=== PATIENT | male | born 1940 | race Caucasian/White ===

== ENCOUNTER → 2018-05-14 12:49 | Outpatient (CLI) | payer MEDICARE, OTHER, SELFPAY ==
--- NOTE | 2018-05-14 | DI.MG.S_ITS ---
MALE BILATERAL DIGITAL DIAGNOSTIC MAMMOGRAM 3D/2D: 05/14/2018 CLINICAL: Left breast mass. No prior exams were available for comparison. There is a benign area of fibroglandular tissue in the left breast central to the nipple anterior depth. This correlates as palpated, to the area of reported pain, and to area of tenderness. No other significant masses, calcifications, or other findings are seen in either breast. IMPRESSION: Mammographic appearance is consistent with left breast gynecomastia. There is no mammographic evidence of malignancy. Clinical follow up for symptoms is recommended. Findings were conveyed to the patient. This exam was interpreted at Station ID: [id number]. NOTE: For mammograms, a report in lay terms will be sent to the patient. Approximately 15% of breast malignancies will not be visualized mammographically. In the management of a palpable breast mass, a negative mammogram must not discourage biopsy of a clinically suspicious lesion. Electronically Signed By: Rama jeffers/:05/14/2018 15:09:28 letter sent: Clinical Evaluation ACR BI-RADS Category 2: Benign Finding(s) [id number]
--- NOTE | 2018-05-14 | DI.US.S_ITS ---
LIMITED ULTRASOUND OF LEFT BREAST: 05/14/2018 CLINICAL: Left breast pain / lump. Comparison is made to exam [facility] Ultrasound of the left breast retroareolar was performed. No abnormalities were seen sonographically in the left breast to correspond to patients lump or area of pain. IMPRESSION: NEGATIVE There is no sonographic evidence of malignancy. Findings were conveyed to the patient. Clinical follow up is recommended. Please see corresponding mammogram report. This exam was interpreted at Station ID: [id number]. Electronically Signed By: Rama jeffers/:05/14/2018 15:06:26 Ultrasound BI-RADS: 1 Negative
== END ==
PROVIDERS: PCP Family Medicine; Visit Provider Family Medicine
DX: N63.20 Unspecified lump in the left breast, unspecified quadrant (principal); N62 Hypertrophy of breast; N64.4 Mastodynia
CPT/HCPCS: 76642; 77066; G0279

== ENCOUNTER → 2019-10-24 12:17 | Outpatient (CLI) | payer MEDICARE, OTHER, SELFPAY ==
--- NOTE | 2019-10-24 12:19 | DI.MRI.S_ITS ---
PROCEDURE: MR LUMBAR SPINE WO/W CON INDICATIONS: SPINAL STENOSIS LUMBAR REGION WITH NEUROGENIC CLA TECHNIQUE: Noncontrast sagittal T1 spin echo and T2 fast spin echo, sagittal STIR, axial T1 and T2 fast spin echo through the lumbar spine. In cases with scoliosis, additional coronal T2 fast spin echo may be performed. After the administration of contrast, sagittal and axial T1 spin echo with fat saturation through the lumbar spine. COMPARISON: None. FINDINGS: Image quality: Excellent. Alignment and curvature: There is mild grade anterolisthesis seen level. No associated pars defects are seen mild retrolisthesis is seen and L5-S1. Marrow: Marrow is of normal overall signal. No acute vertebral body compression fractures. No suspicious marrow enhancement. Spinal cord: Conus medullaris terminates at the L1 level. Visualized spinal cord demonstrates normal signal, without suspicious enhancement. Paraspinous soft tissues: No paravertebral masses or abnormal enhancement. T12-L1: No significant abnormality is seen. There is a Schmorl's seen the inferior endplate of T12 anteriorly. L1-L2: The disc height and disk signal are well-preserved. Mild generalized disc bulge is seen. Mild facet joint hypertrophy is seen. Mild bilateral neural foraminal narrowing is seen. No significant central canal narrowing is seen. L2-L3: The disc height is well-preserved. Loss of disc signal is seen at this level. Moderate disc bulge is seen, with a central disc protrusion. There is at least moderate facet hypertrophy seen. Associated hypertrophy of the ligamentum flavum can be seen. At least moderate bilateral neural foraminal narrowing is seen, left worse than right. Moderate to severe central canal narrowing is seen, as on series 6, image 20. L3-L4: The disc height is well-preserved. Loss of disc signal is seen at this level. Moderate disc bulge is seen, which is eccentric to the right. Moderate prominent facet hypertrophy is seen. Associated hypertrophy of the ligamentum flavum can be seen. There is at least moderate bilateral neural foraminal narrowing seen, right worse than left. Moderate to severe central canal narrowing is seen, as on series 6, image 26. L4-L5: Moderate loss of disc height is seen. Loss of disc signal is seen. At least moderate disc bulge is seen at this level. A mild central disc extrusion is seen at this level, as on series 2, image 11. There is an associated annular fissure seen. There is moderate right-sided and moderate to prominent left-sided facet hypertrophy seen. There is at least moderate right-sided and moderate to severe left-sided neural foraminal narrowing seen. There is a degree of compression seen upon the exiting nerve roots. At least moderate central canal narrowing is seen, as on series 6, image 31. L5-S1: At least moderate loss of disc height and disc signal can be seen. Moderate disc bulge is seen, with a mild central disc protrusion. There is a focal annular fissure seen posteriorly. Mild to moderate facet hypertrophy is seen. There is moderate to severe bilateral neural foraminal narrowing seen, left worse than right. There is a degree of compression seen upon the exiting nerve roots. Moderate central canal narrowing is seen. IMPRESSION: Multiple levels of lumbar spine degenerative change are seen, which are most prominent inferiorly. No abnormal enhancement is seen. Dictated by: Donnell Cullen M.D. on 10/24/2019 at 14:26 Approved by: Donnell Cullen M.D. on 10/24/2019 at 14:31
--- NOTE | 2019-10-24 12:56 | DI.RAD.S_ITS ---
PROCEDURE: XR KNEE LT 3V INDICATIONS: EVAL FOR DEGREE OF OA ALSO WITH CURRENT H/O RECURRENT PROSTA TECHNIQUE: 3 views of the knee were acquired. COMPARISON: None. FINDINGS: Bones: No fractures or dislocations. No suspicious bony lesions. Moderate medial and patellofemoral compartment osteoarthritis. Mild lateral compartment osteoarthritis. Soft tissues: No joint effusion. No suspicious soft tissue calcifications. IMPRESSION: Moderate medial and patellofemoral compartment as well as mild lateral compartment left knee osteoarthritis. Dictated by: Lucille Celis MD, PhD on 10/24/2019 at 15:23 Approved by: Lucille Celis MD, PhD on 10/24/2019 at 15:24
--- NOTE | 2019-10-24 12:56 | DI.RAD.S_ITS ---
PROCEDURE: XR KNEE RT 3V INDICATIONS: EVAL FOR DEGREE OF OA ALSO WITH CURRENT H/O RECURRENT PROSTA TECHNIQUE: 3 views of the knee were acquired. COMPARISON: None. FINDINGS: Bones: Postsurgical changes compatible prior anterior cruciate ligament. Noted. No fractures or dislocations. No suspicious bony lesions. Moderate medial and patellofemoral compartment osteoarthritis. Mild lateral compartment osteoarthritis. Soft tissues: Small suprapatellar joint effusion. No suspicious soft tissue calcifications. IMPRESSION: 1. Status post ACL repair. 2. Moderate medial and patellofemoral compartment as well as mild lateral compartment right knee osteoarthritis. 3. Small nonspecific joint effusion. Dictated by: Lucille Celis MD, PhD on 10/24/2019 at 15:24 Approved by: Lucille Celis MD, PhD on 10/24/2019 at 15:26
== END ==
PROVIDERS: PCP Family Medicine; Referring Provider Family Medicine; Visit Provider Family Medicine
DX: M48.062 Spinal stenosis, lumbar region with neurogenic claudication (principal); M47.816 Spondylosis without myelopathy or radiculopathy, lumbar region; M47.817 Spondylosis without myelopathy or radiculopathy, lumbosacral region; C61 Malignant neoplasm of prostate; M25.561 Pain in right knee; M25.562 Pain in left knee; M17.0 Bilateral primary osteoarthritis of knee; M25.461 Effusion, right knee
CPT/HCPCS: 72158; 73562

== ENCOUNTER → 2020-12-24 11:58 | Outpatient (CLI) | payer MEDICARE, OTHER, SELFPAY ==
[2020-12-24 20:44] LABS: COVID19 - ORCAS (NP or Nasal) Negative (Negative)
== END ==
PROVIDERS: PCP Family Medicine; Visit Provider Family Medicine
DX: Z20.822 Contact with and (suspected) exposure to COVID-19 (principal); N39.0 Urinary tract infection, site not specified
CPT/HCPCS: C9803; U0003

== ENCOUNTER → 2021-10-06 16:41 | Outpatient (CLI) | payer MEDICARE, OTHER, SELFPAY ==
--- NOTE | 2021-10-06 16:45 | DI.MRI.S_ITS ---
PROCEDURE: MR LUMBAR SPINE WO CON INDICATIONS: Spinal stenosis, foraminal stenosis, neurogenic claudication TECHNIQUE: Noncontrast sagittal T1 spin echo and T2 fast echo, sagittal STIR, and T2 fast spin echo through the lumbar spine. In cases with scoliosis, additional coronal T2 fast spin echo may be performed. COMPARISON: None. FINDINGS: Image quality: Excellent. Alignment and Curvature: There is normal bony alignment. Bone Marrow: Multilevel degenerative endplate changes noted particularly at L4-5. Spinal Cord: Conus medullaris terminates at the L1 level. Visualized cord demonstrates normal signal and size. Paraspinous Soft Tissues: No paravertebral masses. T12-L1: Normal appearance. L1-L2: Mild disc space narrowing and circumferential disc bulge present without central or foraminal stenosis L2-L3: Circumferential disc bulge and hypertrophic facet joints combined with ligamentum flavum laxity to result in moderate to severe central stenosis. Mild bilateral foraminal stenosis L3-L4: Disc space narrowing with circumferential disc bulge and hypertrophic facet joints results in moderate central stenosis. No foraminal stenosis L4-L5: Disc space narrowing with circumferential disc bulge and hypertrophic facet joints combined result in moderate central stenosis. Moderate bilateral foraminal stenosis present. L5-S1: Disc space narrowing with circumferential disc bulge and hypertrophic facet joints resulting mild central stenosis severe right and left foraminal stenosis IMPRESSION: Para auto text Multilevel degenerative disc disease and arthropathy results in varying degrees of central and foraminal stenosis including at least moderate central stenosis L2-3, L3-4 and L4-5, worse at L2-3, as well as severe bilateral foraminal stenosis at L5-S1 Approved by: Noe Hinds M.D. on 10/06/2021 at 17:09
== END ==
PROVIDERS: PCP Physician Assistant Medical; Referring Provider Family Medicine; Visit Provider Family Medicine
DX: M48.062 Spinal stenosis, lumbar region with neurogenic claudication (principal); M48.07 Spinal stenosis, lumbosacral region; M51.36 Other intervertebral disc degeneration, lumbar region; M51.37 Other intervertebral disc degeneration, lumbosacral region; M47.816 Spondylosis without myelopathy or radiculopathy, lumbar region; M47.817 Spondylosis without myelopathy or radiculopathy, lumbosacral region
CPT/HCPCS: 72148

== ENCOUNTER → 2022-01-18 12:06 | Outpatient (CLI) | payer MEDICARE, OTHER, SELFPAY ==
--- NOTE | 2022-01-18 12:09 | DI.RAD.S_ITS ---
PROCEDURE: XR LUMBAR SPINE MIN 4V INDICATIONS: BACK PAIN TECHNIQUE: 5 views of the lumbar spine were acquired, including bilateral oblique views. COMPARISON: None. FINDINGS: Bones: 5 nonrib-bearing vertebrae are present. There is straightening of normal lumbar lordosis. 5 mm anterolisthesis of L3 on L4 is seen. Degenerative endplate changes and bilateral facet arthrosis throughout lumbar spine is seen most notably at L3-4 through L5-S1 levels. No vertebral body compression fractures. No suspicious bony lesions. Soft tissues: Overlying bowel gas pattern is normal. No suspicious soft tissue calcifications. Oblique images: No pars defects. IMPRESSION: Degenerative disc disease throughout lumbar spine. 5 mm anterolisthesis of L3 on L4. No acute compression fracture. No gross pars defects. Dictated by: Chencho Steiner M.D. on 01/18/2022 at 13:27 Approved by: Chencho Steiner M.D. on 01/18/2022 at 13:29
== END ==
PROVIDERS: PCP Family Medicine; Referring Provider Physical Medicine & Rehabilitation; Visit Provider Physical Medicine & Rehabilitation
DX: M51.16 Intervertebral disc disorders with radiculopathy, lumbar region (principal); M43.16 Spondylolisthesis, lumbar region; M48.062 Spinal stenosis, lumbar region with neurogenic claudication; M16.0 Bilateral primary osteoarthritis of hip; Z98.890 Other specified postprocedural states
CPT/HCPCS: 72110; 99214

== ENCOUNTER 2022-02-21 10:51 | Outpatient (CLI) | payer MEDICARE, OTHER, SELFPAY ==
[2022-02-21] VITALS (9 sets, daily range): BP systolic 112–161; BP diastolic 67–81; PULSE 68–88; RESP 11–24; TEMP 36.3; O2SAT 94–97
--- NOTE | 2022-02-21 10:56 | DI.RAD.S_ITS ---
PROCEDURE: PAIN L INTERLAMINAR/CAUDAL INJ INDICATIONS: SPONDYLOSIS COMPARISON: [facility], [place], XR LUMBAR SPINE MIN 4V, 01/18/2022, 12:23. FINDINGS: Fluoroscopic spot filming was performed to verify placement of a spinal needle at the L3-L4 level, as labeled on the films. Appropriate location of the needle tip was confirmed by injection of iodinated contrast. IMPRESSION: Intraprocedural examination within normal limits. Dictated by: Donnell Cullen M.D. on 02/21/2022 at 14:10 Approved by: Donnell Cullen M.D. on 02/21/2022 at 14:10
[2022-02-21] MEDS: MIDAZOLAM 2 MG/2 ML VIAL 4 MG IV (12:36)
[2022-02-21] MEDS: BETAMETHASONE 30 MG/5 ML MDV 6 MG INJ (12:40)
[2022-02-21] MEDS: IOPAMIDOL 15 ML VIAL 3 ML INJ (12:41)
[2022-02-21] MEDS: BUPIVACAINE 0.25% (PF) VIAL 2 ML INJ (12:41)
[2022-02-21] MEDS: DEXAMETHASONE 10 MG/ML VIAL 20 MG INJ (12:41)
--- NOTE | 2022-02-21 12:48 | P.PCN_ITS ---
Date/Time/Diagnoses Date of procedure: 02/21/22 Time of procedure: 12:48 Pre-procedure diagnosis: 1. HNP WITH RADICULAR FEATURES, 2. MULTILEVEL CENTRAL STENOSIS, Post-procedure diagnosis: same Procedure Notes Procedure: 1. FLUOROSCOPICALLY GUIDED CONTRAST CONTROLLED INTERLAMINAR EPIDURAL STEROID INJECTION - L3/4 Indications: Yunior is referred by Dr. Delgado for treatment of Bilateral Foraminal Stenosis L>R LE symptoms. Physician: Jose Castro Total Fluoroscopy time (seconds): 6 Total sedation minutes: 9 Complications: none Procedure in detail & Post-procedure care: FINDINGS Multilevel Central Spinal Stenosis with Nerve Root Compression DESCRIPTION OF PROCEDURE Fluoroscopically guided, contrast-controlled L3/4 translaminar epidural steroid injection. Following review of allergy and review of potential side effects and complications, including, but not necessarily limited to, infection, allergic reaction, local tissue breakdown, temporary as well as permanent nerve injury, paralysis, stroke and possible , the patient indicated that the patient understood and agreed to proceed. An informed consent document was signed by the patient, witnessed by a nurse, and placed in the patient's chart. Additionally, other treatment options including modalities, medications, and physical therapy were reviewed with the patient. After review of previous anaesthesic history and IV conscious sedation the patient was deemed safe to proceed with today?s procedure with IV conscious sedation as ASA class II designation. Safety time-out was performed to confirm patient ID, procedure to be performed and site of procedure. IV sedation was accomplished with a combination of 4mg of Versed was administered by the RN after DO order, titrated to patient comfort during the course of the procedure while the patient remained responsive to all verbal commands. In the prone position, following sterile prep and drape of the lumbar region, the L3/4 translaminar space was identified fluoroscopically. The skin was anesthetized via a 25-gauge, 1.5-inch needle with 1% lidocaine solution. At this point, a 22-gauge short bevel spinal needle was atraumatically introduced and advanced under fluoroscopic guidance into the region of the L3/4 translaminar space. Depth was confirmed on lateral view. Radiological data, including multiple fluoroscopic views of the lumbar spine, reveal a spinal needle at the L3/4 translaminar space. Lateral views then show placement of the needle in the epidural space. Subsequent views show contrast material flowing superiorly and inferiorly in the epidural space. No vascular or intrathecal uptake is observed. At this point, using loss of resistance technique with saline and air, the epidural space was entered. This was confirmed following negative aspiration with injection of approximately 1.5 cc of Isovue 200, showing excellent epidural flow without vascular or intrathecal uptake. At this point, 1cc of 1% lidocaine solution combined with 3cc or 20mg of dexamethasone and 6mg of betamethasone was injected without incident. The patient tolerated the procedure well without signs or symptoms of complications prior to transfer to the recovery area continued monitoring without incident. The patient was then transferred to the recovery area where they were observed for an appropriate period of time after the injection. The patient reported a VAS score of 6 prior to the procedure and a post- procedure VAS of 0. POST OP INSTRUCTIONS The patient was provided a Pain Log to continue to record their response to the target-specific procedure prior to follow-up visit with their referring physician. Additionally, specific post-injection care instructions and a contact number to our office were provided if concerns arise regarding possible complications associated with the procedure are suspected.
--- NOTE | 2022-02-21 13:28 | PC.NURSE ---
Patient monitoring post sedation completed. Awaiting his ride who will be delayed. Dr. Castro aware. Medically wang, patient is discharged.
== END 2022-02-21 13:35 | disposition home or self-care (01) ==
LOC: RAD 10:51
PROVIDERS: PCP Family Medicine; Referring Provider Physical Medicine & Rehabilitation; Visit Provider Physical Medicine & Rehabilitation
DX: M48.062 Spinal stenosis, lumbar region with neurogenic claudication (principal); M51.16 Intervertebral disc disorders with radiculopathy, lumbar region
CPT/HCPCS: 62323; J0702; J1100; J2250; J3490

== ENCOUNTER → 2022-09-06 11:57 | Outpatient (CLI) | payer MEDICARE, OTHER, SELFPAY ==
[2022-09-06 19:32] LABS: Alanine Aminotransferase 21 IU/L (<50); Albumin 4.1 g/dL (3.5-5.0); Albumin Globulin Ratio 1.3 (1.0-2.8); Alkaline Phosphatase 111 U/L (38-126); Aspartate Aminotransferase 27 IU/L (17-59); BUN Creatinine Ratio 28.2 (6-22); Bilirubin Total 0.7 mg/dL (0.2-1.3); Blood Urea Nitrogen 20 mg/dL (9-20); Calcium 9.5 mg/dL (8.4-10.2); Carbon Dioxide 26 mmol/L (22-32); Chloride 102 mmol/L (98-107); Estimated Glomerular Filt Rate > 60 mL/min (>60); Globulin 3.1 g/dL (1.7-4.1); Glucose 163 mg/dL (80-110); HEMOLYSIS 19 (0-50); Magnesium 2.1 mg/dL (1.6-2.3); Potassium 3.5 mmol/L (3.4-5.1); Sodium 137 mmol/L (137-145); Total Protein 7.2 g/dL (6.3-8.2)
[2022-09-06 19:39] LABS: Add Manual Diff / Slide Review NO; Basophils Absolute Auto 0 /uL (0-100); Basophils Percent Auto 0.2 % (0-2); Eosinophils Absolute Auto 100 /uL (0-450); Eosinophils Percent Auto 1.5 % (2-4); Hematocrit 39.3 % (41-53); Hemoglobin 13.4 g/dL (13.5-17.5); Lymphocytes Absolute Auto 1000 /uL (1100-4500); Lymphocytes Percent Auto 12.4 % (25-40); Mean Corpuscular Hemoglobin 30.9 PG (26-34); Mean Corpuscular Volume 90.8 fL (80-100); Monocytes Absolute Auto 400 /uL (0-900); Neutrophils Absolute Auto 6300 /uL (1500-7000); Neutrophils Percent Auto 80.9 % (50-75); Platelet Count 192 X10^3/uL (150-400); Red Blood Cell Count 4.33 X10^6/uL (4.5-5.9); Red Cell Distribution Width 14.2 % (11.6-14.8); White Blood Cell Count 7.8 X10^3/uL (4.5-11.0)
[2022-09-07 12:30] LABS: HEMOLYSIS 21 (0-50); Iron 83 ug/dL (49-181)
[2022-09-07 12:40] LABS: Percent Iron Saturation 23 % (20-50); Total Iron Binding Capacity 359 ug/dL (261-462); Transferrin 283 mg/dL (206-381)
[2022-09-07 13:06] LABS: Ferritin 178 ng/mL (18-464)
[2022-09-08 03:09] LABS: Labcorp Hemoglobin (Hb) A1c 5.8 % (4.8-5.6)
== END ==
PROVIDERS: PCP Family Medicine; Visit Provider Physician Assistant
DX: I10 Essential (primary) hypertension (principal); M25.561 Pain in right knee; R42 Dizziness and giddiness; R11.2 Nausea with vomiting, unspecified; G89.29 Other chronic pain; M25.562 Pain in left knee; D64.9 Anemia, unspecified; R73.9 Hyperglycemia, unspecified; Z98.890 Other specified postprocedural states
CPT/HCPCS: 80053; 82728; 83036; 83540; 83550; 83735; 85025

== ENCOUNTER 2023-01-25 10:36 | Outpatient (CLI) | payer MEDICARE, OTHER, SELFPAY ==
[2023-01-25] VITALS (8 sets, daily range): BP systolic 130–150; BP diastolic 66–81; PULSE 57–67; RESP 11–18; TEMP 36; O2SAT 95–98
--- NOTE | 2023-01-25 10:37 | DI.RAD.S_ITS ---
PROCEDURE: PAIN L INTERLAMINAR/CAUDAL INJ INDICATIONS: SPONDYLOSIS COMPARISON: [facility], XA, PAIN L INTERLAMINAR/CAUDAL INJ, 02/21/2022, 13:37. FINDINGS: Fluoroscopic spot filming was performed to verify placement of spinal needles at the L3-L4 interlaminar level(s), as labeled on the films. Appropriate location(s) of the needle tip(s) was confirmed by injection of iodinated contrast. IMPRESSION: Access needle in the L3-L4 interlaminar space for translaminar epidural steroid injection. Dictated by: Lucille Celis MD, PhD on 01/25/2023 at 13:59 Approved by: Lucille Celis MD, PhD on 01/25/2023 at 13:59
[2023-01-25] MEDS: MIDAZOLAM 2 MG/2 ML VIAL IV (11:39)
[2023-01-25] MEDS: BUPIVACAINE 0.25% (PF) VIAL 2 ML INJ (11:48)
[2023-01-25] MEDS: BETAMETHASONE 30 MG/5 ML MDV 6 MG INJ (11:48)
[2023-01-25] MEDS: iopamidoL 15 ML VIAL 3 ML INJ (11:49)
[2023-01-25] MEDS: DEXAMETHASONE 10 MG/ML VIAL INJ (11:49)
--- NOTE | 2023-01-25 11:56 | P.PCN_ITS ---
Date/Time/Diagnoses Date of procedure: 01/25/23 Time of procedure: 11:56 Pre-procedure diagnosis: 1. HNP WITH RADICULAR FEATURES, 2. MULTILEVEL CENTRAL STENOSIS, Post-procedure diagnosis: same Procedure Notes Procedure: 1. FLUOROSCOPICALLY GUIDED CONTRAST CONTROLLED INTERLAMINAR EPIDURAL STEROID INJECTION - L3/4 Indications: Yunior is referred by Dr. Delgado for treatment of Bilateral Foraminal Stenosis L>R LE symptoms. Physician: Jose Castro Total Fluoroscopy time (seconds): 8 Total sedation minutes: 10 Complications: none Procedure in detail & Post-procedure care: FINDINGS Multilevel Central Spinal Stenosis with Nerve Root Compression DESCRIPTION OF PROCEDURE Fluoroscopically guided, contrast-controlled L3/4 translaminar epidural steroid injection. Following review of allergy and review of potential side effects and complications, including, but not necessarily limited to, infection, allergic reaction, local tissue breakdown, temporary as well as permanent nerve injury, paralysis, stroke and possible , the patient indicated that the patient understood and agreed to proceed. An informed consent document was signed by the patient, witnessed by a nurse, and placed in the patient's chart. Additionally, other treatment options including modalities, medications, and physical therapy were reviewed with the patient. After review of previous anaesthesic history and IV conscious sedation the patient was deemed safe to proceed with today?s procedure with IV conscious sedation as ASA class II designation. Safety time-out was performed to confirm p atient ID, procedure to be performed and site of procedure. IV sedation was accomplished with a combination of 2mg of Versed was administered by the RN after DO order, titrated to patient comfort during the course of the procedure while the patient remained responsive to all verbal commands. In the prone position, following sterile prep and drape of the lumbar region, the L3/4 translaminar space was identified fluoroscopically. The skin was anesthetized via a 25-gauge, 1.5-inch needle with 1% lidocaine solution. At this point, a 22-gauge short bevel spinal needle was atraumatically introduced and advanced under fluoroscopic guidance into the region of the L3/4 translaminar space. Depth was confirmed on lateral view. Radiological data, including multiple fluoroscopic views of the lumbar spine, reveal a spinal needle at the L3/4 translaminar space. Lateral views then show placement of the needle in the epidural space. Subsequent views show contrast material flowing superiorly and inferiorly in the epidural space. No vascular or intrathecal uptake is observed. At this point, using loss of resistance technique with saline and air, the epidural space was entered. This was confirmed following negative aspiration with injection of approximately 1.5 cc of Isovue 200, showing excellent epidural flow without vascular or intrathecal uptake. At this point, 1cc of 1% lidocaine solution combined with 2cc or 10mg of dexamethasone and 6mg of betamethasone was injected without incident. The patient tolerated the procedure well without signs or symptoms of complications prior to transfer to the recovery area continued monitoring without incident. The patient was then transferred to the recovery area where they were observed for an appropriate period of time after the injection. The patient reported a VAS score of 6 prior to the procedure and a post- procedure VAS of 0. POST OP INSTRUCTIONS The patient was provided a Pain Log to continue to record their response to the target-specific procedure prior to follow-up visit with their referring physician. Additionally, specific post-injection care instructions and a contact number to our office were provided if concerns arise regarding possible complications associated with the procedure are suspected.
--- NOTE | 2023-01-25 12:12 | PC.NURSE ---
Patient is taking [facility] taxi from the hospital to the [facility]. The taxi is picking him up at 2:[address] entrance[address] Dr. Castro was reminded of this in the procedure room when he verbally ordered 2mg Vers[address] IV[address] Dr[address] Castro stated that he was aware of that and to give the 2mg versed IV. Meds then given per order.
--- NOTE | 2023-01-25 12:18 | PC.NURSE ---
Patient ambulated to the waiting room from the post procedure area. Patient was not dizzy, lightheaded, and he was steady on his feet with no leg weakness bilaterally.
== END 2023-01-25 12:16 | disposition home or self-care (01) ==
LOC: RAD 10:36
PROVIDERS: PCP Family Medicine; Referring Provider Physical Medicine & Rehabilitation; Visit Provider Physical Medicine & Rehabilitation
DX: M51.16 Intervertebral disc disorders with radiculopathy, lumbar region (principal); M48.061 Spinal stenosis, lumbar region without neurogenic claudication
CPT/HCPCS: 62323; 99152; J0702; J1100; J2250; J3490

== ENCOUNTER 2023-09-05 08:40 | Inpatient (IN) | payer MEDICARE, OTHER, SELFPAY ==
[2023-08-27 09:21] VITALS: BMI 32.0
[2023-09-05] VITALS (12 sets, daily range): BP systolic 118–134; BP diastolic 66–78; PULSE 65–75; RESP 12–20; TEMP 35.8–36.9; O2SAT 93–99; BMI 30.4; BMI 30.9
--- NOTE | 2023-09-05 | DI.RAD.S_ITS ---
PROCEDURE: XR LUMBAR SPINE 2-3V INDICATIONS: TLIF 4-5, LAMI L3-4, L2-3 TECHNIQUE: Multiple intraoperative fluoroscopic views of the lumbar spine were acquired. COMPARISON: [facility] ([place]), [place], XR LUMBAR SPINE 2-3V, 08/17/2022, 12:05. FINDINGS: Bones: Multiple fluoroscopic images demonstrate localization and instrumentation at the L4-5 level. IMPRESSION: Fluoroscopic images demonstrating instrumentation at L4-5. Dictated by: Hazel Boyer M.D. on 09/05/2023 at 16:40 Approved by: Hazel Boyer M.D. on 09/05/2023 at 16:41
[2023-09-05] MEDS: LACTATED RINGERS 1,000 ML 42 ML IV ×2 (09:25→12:15)
[2023-09-05] MEDS: ACETAMINOPHEN 325 MG TABLET 975 MG PO (09:35)
--- NOTE | 2023-09-05 10:05 | PM.PREOP ---
Pre-operative Note Interval Note History & Physical reviewed/Exam performed by Physician: Yes Changes to H&P: No
[2023-09-05] MEDS: CEFAZOLIN 2 GM/100 ML PREMIX 100 ML IV ×2 (11:05→18:35)
--- NOTE | 2023-09-05 11:25 | SUR.OPER ---
Prone on spine table, head in foam head support, padded chest and pelvic supports, gel pad at knees, lower legs supported by pillows; nipples, genitalia and toes free of pressure, arms secured on foam padded arm boards at <90 degrees abduction. Tape over blanket at thigh secured to table.
[2023-09-05] MEDS: BUPIVACAINE 0.25% (PF) 60 ML, EPINEPHrine 0.15 MG INJ (11:30)
[2023-09-05] MEDS: BUPIVACAINE LIPOSOME 266 MG/20 ML VIAL INJ (11:31)
--- NOTE | 2023-09-05 14:03 | PM.OP.1 ---
Operative Date/Time/Diagnoses Date of procedure: 09/05/23 Time of procedure: 10:45 Pre-op diagnosis: 1. 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 Epidural lipomatosis Post-op diagnosis: same Procedure & Clinicians Procedure: 1. L4-5 Postero-lateral and posterior interbody fusion 2. L4-5 interbody cage placement. 3. L4-5 decompressive laminectomy with bilateral facetecomies 4. L4-5 Posterior non-segmental instrumentation 5. L2-3, L3-4 laminectomies with bilateral partial facetecomies 6. Epidural lipoma excision from epidural space for decompression 7. [place] of bone marrow from iliac crest 8. Utilization of microsurgical technique and operating microscope Same procedure as scheduled: Yes Indications: Patient has been having chronic back pain and worsening lumbar radiculopathy and symptoms of neurogenic claudication. Patient had history of L4-5 laminectomy with recent worsening of radiculopathy correlating with his foraminal stenosis at L4-5 level. Patient also has neurogenic claudication correlating with his severe L2-3 L3-4 central stenosis. Patient failed multiple conservative management with worsening pain weakness and numbness in her lower extremity. Patient has been having difficulty performing activity of daily living. After discussing risks benefits of treatment options, patient elected proceed with surgery. Surgeon: Demarcus Nugent Blind Installer: Eleni Malin Click Yes if Unassisted: No Anesthesia Type: General Operative Notes Closure Type: primary Specimen(s): none sent Prosthetic devices, grafts, tissues, transplants, or devices: Globus revolve screws, Sable cage Applied: catheter Estimated Blood Loss (mL): 50 Blood products transfused: none Procedure in detail: Patient was seen in the preoperative area. Risks and benefits of the surgery was discussed with the patient. Informed consent was obtained from the patient and placed in the chart. Surgical site was marked. Patient was taken to the operative room. General anesthesia was administered. Prophylactic antibiotic was given to the patient less than 30 min before the incision was made. Patient was placed into a prone position on the Martínez table. Patient's back was then prepped and draped in the sterile fashion. Time-out was performed at this time. Using AP and lateral C-arm imaging the interval between L4-5 was identified and marked on patient's back. A 2 inch incision 2 in from midline was made on the right side first. The fascia was incised in line with skin incision. Globus MARS retractors was placed inside the incision and docked onto the L4 lamina. Using microsurgical technique and operating microscope, a L4 laminectomy and L4-5 facetectomy was performed using a Kerrison rongeur. The laminectomy and facetectomy was performed in order to decompress patient's cauda equina as well as the nerve roots exiting at the L4-5 level. The laminectomy and facetectomy rendered L4-5 grossly unstable and imparted fusion procedure at the same time. The disc space at L4-5 was identified. And a total diskectomy was performed at L4-5 level. The endplates were decorticated using a rasp and shaver. The total diskectomy and decortication was performed at L4-5 level in order to to accomplish a L4-5 fusion. The local bone from the laminectomy and facetectomy was saved for local bone grafting. After the total diskectomy and decortication was completed, Globus viacell bone graft material was combined with local bone that was harvested earlier. At this time, a separate skin is incision was made over the iliac crest. A Jamshidi needle was inserted into the iliac crest through a separate skin incision. 5 cc of bone marrow aspiration was obtained through the separate skin incision using a Jamshidi needle from the iliac crest. The bone marrow aspiration was combined with local bone and the via cell bone grafting material. The bone grafting material was placed into the L4-5 interbody space along with a expandable cage. The cage was expanded to its maximum height using the torque limiting screwdriver. At this time the MARS retractor was redirected over the L3 lamina. Using microsurgical technique and operating microscope, a L3 laminectomy was performed using the Kerrison rongeur. The ligamentum flavum was also resected at the side of the laminectomy for further decompression of the epidural space. Ligamentum flavum was removed in the process of decompression. Bilateral facets were undercut to further decompress the lateral recess at the L3-4 level. A separate incision was made over the L2-3 interval and the MARS's retractor was targeted at L2-3 level under C-arm guidance. The retractor was docked onto the L3 lamina. Using microsurgical technique and operating microscope, a L2 laminectomy was performed using the Kerrison rongeur. The ligamentum flavum was also resected at the side of the laminectomy for further decompression of the epidural space. Ligamentum flavum was removed in the process of decompression. Bilateral facets were undercut to further decompress the lateral recess at the L2-3 level. There was significant amount of epidural lipomatosis at L2-3 level causing severe central stenosis. The epidural lipomas were resected using the pituitary to further decompress the epidural space at L2-3 level. After the laminectomy and epidural lipomatosis excision was completed the spinal canal and lateral recess was fully decompressed. Special care was taken to keep sufficient skin bridge in between the right-sided incisions to make sure there is not going to be sufficient healing between the 2 incisions. At this time a mirror image incision was made on the left side. The fascia was incised in line with the skin incision. Globus MARS retractor was inserted and docked onto the L4-5 posterolateral gutter. Using the power drill, posterior-lateral decortication was performed at L4-5 level until bleeding cortical bone was identified. The remaining bone grafting material was placed into the L4-5 posterior lateral gutter he order to accomplish posterolateral fusion at the L4-5 level. Using the double C-arm technique, pedicle screws were placed into the L4 and L5 pedicles bilaterally. This was done by placing the Jamshidi needle into the pedicles, then placing the guidewires over the Jamshidi needle, and finally placing the cannulated screws over the guidewires bilaterally. After the pedicle screws were placed, 2 titanium rods was locked into the heads of the pedicle screws using locking caps and torque limiting screwdriver. After all the hardware was placed, and confirmed with AP and lateral C-arm imaging, the wound was then irrigated with sterile normal saline and packed with Ray-Obdulio gauze for 3 min to accomplish hemostasis. After the gauze was removed the deep fascia was closed with #1 Vicryl suture. The subcutaneous layer was closed with 2-0 Vicryl. The skin was closed with skin yisel. Patient tolerated the procedure well. There were no complications. The Operation could not have been safely performed without compromising the technical result or length of the procedure, without the assistance of a skilled surgical technology instructor. The surgical technology instructor was medically necessary for proper positioning, retraction and manipulation of instruments, proper exposure, surgical preparation, and manipulation of tissue. Neuro monitoring was utilized throughout the entire case. The signal from both upper and lower extremities were stable throughout her procedure. Complications: none Post-operative Condition: stable Disposition: PACU Plan for aftercare: Admit to inpatient hospital
--- NOTE | 2023-09-05 15:31 | PC.NURSE ---
Pt arrived from PACU at 1450, VSS on 2L NC. A&Ox3, disoriented to month and year. c/o 3/10 pain to back, does not want pain meds at this time. Dressing to back intact with scant drainage on R side. CMS+ throughout, bowel sounds hypoactive, lungs diminished. Pt oriented to room and call light. SCDs on, bed in low position, call light within reach, bed alarm activated.
[2023-09-05] MEDS: LACTATED RINGERS 1,000 ML 125 ML IV (16:52)
[2023-09-05] MEDS: ACETAMINOPHEN 325 MG TABLET 650 MG PO (16:59)
[2023-09-05] MEDS: SENNOSIDES 8.6 MG TABLET 17.2 MG PO (20:15)
[2023-09-05] MEDS: DOCUSATE 100 MG CAPSULE PO (20:15)
[2023-09-05] MEDS: OXYCODONE IR 5 MG TABLET PO (21:25)
[2023-09-06] MEDS: CEFAZOLIN 2 GM/100 ML PREMIX 100 ML IV (02:42)
[2023-09-06] MEDS: LACTATED RINGERS 1,000 ML 125 ML IV (02:46)
[2023-09-06] MEDS: OXYCODONE IR 5 MG TABLET PO (05:28)
[2023-09-06 05:45] LABS: Hematocrit 33.3 % (41-53); Hemoglobin 11.4 g/dL (13.5-17.5)
[2023-09-06] MEDS: ACETAMINOPHEN 325 MG TABLET 650 MG PO (06:10)
[2023-09-06 07:00] VITALS: O2SAT 96
[2023-09-06] MEDS: VIT C/E/ZN/COPPR/LUTEIN/ZEAXAN CAPSULE 1 CAP PO (08:18)
[2023-09-06] MEDS: hydroCHLOROthiazide 25 MG TABLET 12.5 MG PO (08:18)
[2023-09-06] MEDS: DOCUSATE 100 MG CAPSULE PO ×2 (08:19→20:01)
[2023-09-06] MEDS: OXYCODONE IR 10 MG TABLET PO ×4 (08:19→22:44)
[2023-09-06] MEDS: LOSARTAN 50 MG TABLET PO (08:19)
[2023-09-06 08:30] VITALS: O2SAT 94
[2023-09-06 08:57] VITALS: BP 123/65; PULSE 70; RESP 18; TEMP 36.3; O2SAT 98
--- NOTE | 2023-09-06 09:56 | OT.IP.EVAL ---
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 Prostate cancer Surgical History (Last Updated 08/27/23 @ 10:15 by Claire Javed RN) H/O vasectomy History of radical prostatectomy Hx of arthroscopy of left knee Hx of bilateral cataract extraction Hx of laminectomy Hx of laminectomy Hx of LASIK Retinal detachment S/P foot surgery, left Occupational Therapy Inpatient Evaluation/Re-Eval M1 PT/OT-IP Prior Functional Status Start: 09/06/23 10:05 Freq: NEEDED Status: Active Protocol: Document 09/06/23 09:18 [facility] (Rec: 09/06/23 10:24 [facility] [id number]) Medical Review Prior Functional Status Medical History Reviewed Yes Communication Independent Mobility and Gait Pt states was independent. Activities of Daily Living and IADL's Pt states independent for ADL and IADL needs. Social History Household Members spouse Living Arrangements House Number of Stairs To Enter/Railing? Per pt has elevator to access other levels of the house. Pt has 40-50 ft to get to the front door. Home Environment High Toilet,Walk in Shower Home Equipment Four Wheel Walker,Hand Held Shower,Grab Bars Near Toilet, Grab Bars In Shower Additional Social History Comment Pt has a rolling shower chair in the large walk in shower. Pt's having recent scapular sx and will be at [facility] for re[facility], pt's has Parkinson's. Pt states has a caregiver that lives there who prior assists his approximately 4 hours daily. Pt states to look into having the caregiver be available to assist more. Pt's son in law to stay with him for a couple days. M2 OT-IP Current Condition Start: 09/06/23 10:05 Freq: Status: Active Protocol: Document 09/06/23 09:18 [facility] (Rec: 09/06/23 10:24 [facility] [id number]) Occupational Therapy Current Condition Current Condition Evaluation Date 09/06/23 Treatment Diagnosis S/P L4-5 TLIF, L2-3, L3-4 laminectomies Diagnosis Onset Date 09/05/23 Post Operative Precautions Lumbar Precautions Log Roll,No Twisting,Limit Bending,Lifting Restriction of 10 lbs,Gait Belt above Incisional Area M3 OT- IP Subjective and Pain Start: 09/06/23 10:05 Freq: Status: Active Protocol: Document 09/06/23 09:18 [facility] (Rec: 09/06/23 10:24 [facility] [id number]) OT- Subjective Occupational Therapy Visit Type Type Initial Evaluation Visit Start Time 09:18 Visit Stop Time 09:56 Occupational Therapy Visit Comments Patient Comments Pt wanting to use the toilet. Patient/Caregiver Goals To go home. OT Pain Assessment Pain When Pain Assessed During Mobility Pain Present Pain Present Pain Reported M4 OT- IP ADL's Start: 09/06/23 10:05 Freq: Status: Active Protocol: Document 09/06/23 09:18 [facility] (Rec: 09/06/23 10:24 [facility] [id number]) OT [id number] General Evaluation Self-Feeding Ability Independent OT ADL-Grooming Comments OT Grooming Comments Pt states did prior. OT ADL-Oral Care Comments Oral Care Comments Pt states did prior. Educated to best spit into a cup or hinge at his hips to best follow his back precautions. OT ADL-Dressing General Eval Lower Body Dressing Ability Maximum Assistance Areas Needing Assistance Underpants/Brief,Socks Comments OT Dressing Comments Able to practice use of bulb packer and sock aid to best follow his back precautions. OT ADL-Toileting General Evaluation Toileting Ability Minimal Assistance Areas Needing Assistance Manage Clothing Comments OT Toileting Comments VC to proper technique to follow while wiping, suggested use of wipes and urinal at night. OT ADL-Bathing Comments OT Bathing Comments Not performed. Educated pt to cover the dressing for showering needs to prevent it from getting wet. M5 OT- IP IADL's Start: 09/06/23 10:05 Freq: Status: Active Protocol: Document 09/06/23 09:18 [facility] (Rec: 09/06/23 10:24 [facility] [id number]) OT-Instrumental Activities of Daily Living Deficits IADL Deficits Identified Deficits Home Safety Awareness Awareness of Need for Assistance at Home Good Awareness Ability to Problem Solve Emergency Able to Problem Solve Situations Home Safety Comments Pt has a liver trimmer who will be able to assist the pt . Pt's son in law to stay with him initially for 2 days . Meal Preparation Meal Preparation Caregiver Provides Assist Internet Marketing Director Internet Marketing Director Caregiver Provides Assist M6 OT- IP Functional Cognition Start: 09/06/23 10:05 Freq: Status: Active Protocol: Document 09/06/23 09:18 [facility] (Rec: 09/06/23 10:24 [facility] [id number]) Cognitive Factors Limiting Selfcare Function Cognitive Ability Level of Alertness Alert Patient Orientation Name,Age,Birthday,Month,Date, Year,Day of Week,Place, Situation Attention Span Ability Capable of Focused Attention, Capable of Sustained Attention Ability to Follow Commands Able to Follow One Step Commands Safety Awareness Decreased Ability to Apply Precautions Cognitive Comments Cognitive Assessment Comments Pt able to follow his back precautions for ADL and mobility needs and needing initial vc to incorporate for his needs. Pt will benefit from more practice. OT- Vision and Hearing OT- Vision Assessment Visual Acuity Glasses For Reading Visual Attentiveness WFL Occular Pursuits WFL M7 OT- IP Mobility and Balance Start: 09/06/23 10:05 Freq: Status: Active Protocol: Document 09/06/23 09:18 [facility] (Rec: 09/06/23 10:24 [facility] [id number]) OT- Bed Mobility Assessment Supine to Sit Supine to Sit Assist Standby Assistance Sit to Supine Sit to Supine Assist Contact Guard Assistance OT-Transfer Assessment Sit to and From Stand Sit to and from Stand Standby Assistance,Contact Guard Assistance Transfers Transfer Ability Standby Assistance,Contact Guard Assistance Technique Transfer Destination Bed,Toilet Transfer Technique Stand Step Pivot Devices Transfer Assistive Devices Gait Belt,Front Wheeled Walker Comments Mobility Comments Pt CGA for bed mobility needs and states will be able to use his 's bed rail on his side while she is away at rehab. CGA to SBA to stand depending on the level of surface coming up from. Pt states has lots of 4ww and Parkinson's walker at home that he can use but no fww. OT- Balance Assessment Sitting Balance and Reactions Static Sitting Balance Ability Good Dynamic Sitting Balance Ability Good Standing Balance and Reactions Static Standing Balance Ability Good Dynamic Standing Balance Ability Fair M8 OT- IP Objective Assessments Start: 09/06/23 10:05 Freq: Status: Active Protocol: Document 09/06/23 09:18 [facility] (Rec: 09/06/23 10:24 [facility] [id number]) OT Gross Range of Motion Upper Extremity Range of Motion Assessment Within Functional Limits OT Strength Upper Extremity Strength Assessment Within Functional Limits M9 OT- IP Assessment and Plan Start: 09/06/23 10:05 Freq: Status: Active Protocol: Document 09/06/23 09:18 [facility] (Rec: 09/06/23 10:24 [facility] [id number]) OT Summary Assessment and Plan Potential Rehabilitation Potential Excellent Analytic Complexity at Evaluation Low Summary OT Impairments Pain,Balance,Functional Mobility,Dressing,Toileting, Bathing,Toilet Transfers, Shower Transfers Progress Towards Goals Progressing Toward Goals Assessment Summary Pt low complexity and main barriers are pain, and will be needing more assist at home for especially for showering needs. Pt's son in law to stay with him a couple days and pt also has a liver trimmer that maybe able to increase her time to assist. Pt to go home with 24/7 available assist. Goals Grooming Goal Independent Dressing Goal Independent,[place]eman,Sock Aid Toileting Goal Independent Bathing Goal Standby Assistance Toilet Transfer Goal Independent Shower Transfer Goal Standby Assistance Days to Meet Goals 7 Frequency of Treatment Frequency Of Treatment Once a Day Treatment Plan OT Treatment Plan ADL Training,Functional Mobility,Patient/Family Education,Discharge Planning Discharge Recommendations OT Discharge Recommendations Home with 24/7 Assist Available Transportation Needs at Discharge Private Vehicle
--- NOTE | 2023-09-06 11:31 | PT.IIE ---
Current Diagnoses Spinal stenosis, lumbar region without neurogenic claudication (09/05/23) Spinal stenosis, lumbar region with neurogenic claudication (09/05/23) Surgery Performed Operation Date: 09/05/23 10:15 Actual Procedures p L4-5 TLIF, L2-3, L3-4 laminectomies - Demarcus Nugent MD Surgical History (Last Updated 08/27/23 @ 10:15 by Claire Javed, RN) H/O vasectomy History of radical prostatectomy Hx of arthroscopy of left knee Hx of bilateral cataract extraction Hx of laminectomy Hx of laminectomy Hx of LASIK Retinal detachment S/P foot surgery, left Medical History (Last Updated 08/27/23 @ 10:28 by Claire Javed RN) Facet arthropathy, lumbar Gynecomastia History of COVID-19 (~2021) HTN (hypertension) Laceration of right thumb without foreign body with damage to nail (~10/17/17) Lipoma of back 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 Activities of Daily Living and IADL's Pt states indepdendent for ADL and IADL needs. Social History Household Members spouse Living Arrangements House Number of Stairs To Enter/Railing? Pt has elevator to access other levels of the house. Pt has 40-50 ft to get to the front door. Home Environment High Toilet,Walk in Shower Home Equipment Four Wheel Walker,Hand Held Shower,Grab Bars Near Toilet, Grab Bars In Shower Additional Social History Comment Pt has a rolling shower chair in the the large walk in shower. Pt's having recent scapular sx and will be at [facility] for rehab, pt's has Parkinson's. Pt states has a caregiver that lives there who prior assist his approxiately 4 hours daily. Pt states to look into having the caregiver be available to assist more. M1 PT/OT-IP Prior Functional Status Start: 09/06/23 10:05 Freq: NEEDED Status: Active Protocol: Document 09/06/23 09:18 [facility] (Rec: 09/06/23 10:24 [facility] [id number]) Medical Review Prior Functional Status Medical History Reviewed Yes Communication Independent Mobility and Gait Pt states was independent. Activities of Daily Living and IADL's Pt states indepdendent for ADL and IADL needs. Social History Household Members spouse Living Arrangements House Number of Stairs To Enter/Railing? Pt has elevator to access other levels of the house. Pt has 40-50 ft to get to the front door. Home Environment High Toilet,Walk in Shower Home Equipment Four Wheel Walker,Hand Held Shower,Grab Bars Near Toilet, Grab Bars In Shower Additional Social History Comment Pt has a rolling shower chair in the the large walk in shower. Pt's having recent scapular sx and will be at [facility] for rehab, pt's has Parkinson's. Pt states has a caregiver that lives there who prior assist his approxiately 4 hours daily. Pt states to look into having the caregiver be available to assist more. M2 PT-IP Current Condition Start: 09/06/23 08:17 Freq: NEEDED Status: Active Protocol: Document 09/06/23 09:19 MB (Rec: 09/06/23 11:13 MB [id number]) Physical Therapy Current Condition Current Condition Evaluation Date 09/06/23 Treatment Diagnosis TLIF M3 PT-IP Subjective Start: 09/06/23 08:17 Freq: NEEDED Status: Active Protocol: Document 09/06/23 09:19 MB (Rec: 09/06/23 11:13 MB [id number]) Subjective Physical Therapy Visit Type Type Initial Evaluation Visit Start Time 09:19 Visit Stop Time 09:38 Number of ARCHERY INSTRUCTOR Visits 0 Physical Therapy Visit Comments Patient Comments Pt states that he thinks he will be discharging tomorrow because he lives on [address] and his KRISTIN lives in [place] and will be his combine driver. Therapy Pain Assessment Pain When Pain Assessed At Rest Pain Present Pain Present Denied Pain M4 PT-IP Mobility and Gait Start: 09/06/23 08:17 Freq: NEEDED Status: Active Protocol: Document 09/06/23 09:19 MB (Rec: 09/06/23 11:13 MB [id number]) PT-Bed Mobility Assessment Rolling Type of Rolling Log Rolling,Bilateral Level of Assist Standby Assistance Supine to Sit Supine to Sit Standby Assistance,1 Person Assistance Sit to Supine Sit to Supine Minimal Assistance,1 Person Assistance Scooting Scooting to Edge of Bed Standby Assistance Scooting Up and Down in Bed Standby Assistance PT-Transfer Assessment Sit to and From Stand Sit to and from Stand Standby Assistance,1 Person Assistance,Use of Upper Extremities Equipment Transfer Assistive Device Gait Belt,Front Wheeled Walker Orthotic/Prosthetic Devices or Brace: No Transfers Transfer Destination Bed,Toilet Transfer Technique Ambulation Transfer Ability Level of Assist Standby Assistance,1 Person Assistance,Use of Upper Extremities Comments Mobility Comments Cues to push up from the bed and ed and cues for back precautions and log roll technique Gait Assessment Gait Gait Assistance Required: Standby Assistance,1 Person Assist Distance (Feet) 15 Able to Maintain Weight Bearing Status Yes During Gait Assistive Devices Assistive Device Gait Belt,Front Wheeled Walker Orthotic/Prosthetic Devices or Brace: No Gait Deviations General Gait Pattern Decreased Feet Clearance, Flexed Trunk Factors Limiting Gait Function Factors Limiting Gait Function Decreased Activity Tolerance, Poor Balance PT-Balance Assessment Sitting Balance and Reactions Static Sitting Balance Ability Normal Dynamic Sitting Balance Ability Normal Standing Balance and Reactions Static Standing Balance Ability Good Dynamic Standing Balance Ability Fair Device Used RW M5 PT-IP Objective Assessments Start: 09/06/23 08:17 Freq: NEEDED Status: Active Protocol: Document 09/06/23 09:19 MB (Rec: 09/06/23 11:31 MB [id number]) Orientation Orientation/Cognition Level of Alertness Alert Orientation Name,Age,Birthday,Month,Date, Year,Day of Week,Place, Situation Language Function Ability No Deficits Noted Safety Awareness Understands Safety Issues Gross Range of Motion Upper Extremity ROM Impairments Defer to OT Lower Extremity ROM Assessment Within Functional Limits Strength Lower Extremity Strength Assessment Within Functional Limits M7 PT-IP Assessment and Plan Start: 09/06/23 08:17 Freq: NEEDED Status: Active Protocol: Document 09/06/23 09:19 MB (Rec: 09/06/23 11:31 MB [id number]) PT Summary Assessment and Plan Potential Rehabilitation Potential Good Status of Condition at Evaluation Evolving Summary Impairments Balance,Bed Mobility,Transfers ,Gait,Activity Tolerance Progress Towards Goals Slow Progress due to Activity Tolerance Assessment Summary Pt is an 82 y/o male s/p TLIF last date. He presents with decreased I post-op though he does well with PT. He lives on [address] and his is in [place] after scapular surgery . She has PD and they have a live-in caregiver available once he returns home. Anticipate good progress in acute setting with transfers, mobility and gait. Pt has an elevator at home and no steps into home. Goals Bed Mobility Goal Independent Transfer Goal Independent,Front Wheeled Walker,Four Wheeled Walker Gait Goal Independent,Front Wheel Walker ,Four Wheel Walker Gait Distance 150 Days to Meet Goals 2 Frequency of Treatment Frequency Of Treatment Twice a Day Treatment Plan Physical Therapy Treatment Plan Bed Mobility Training,Transfer Training,Gait Training, Therapeutic Exercise,Balance Retraining,Post Op Education, Neuromuscular Re-ed Precautions Lumbar Precautions Log Roll,No Twisting,Limit Bending,Lifting Restriction of 10 lbs,Gait Belt above Incisional Area Weight Bearing Status Weight Bearing Status Weight Bear as Tolerated Recommendations To Nursing Amount of Assist Needed 1 Person Assist Discharge Recommendations PT Discharge Recommendations Home with Assistance Transportation Needs at Discharge Private Vehicle
--- NOTE | 2023-09-06 12:34 | CM.DANOTE ---
Initial DCP Assessment Visit Note Reviewed EMR and team rounds for status updates. Met with pt at bedside to introduce self and role, pt was found to be alert/oriented, laying comfortably in bed at the time of this visit. Pt lieves independently in his own home on [address] with his , who is wheelchair bound and has Parkinson's disease. He is her primary cg, and is worried about caring for her as he recovers. She just had shoulder surgery at [facility], and will be in rehab there for the near future. He has a son that can transport him home once he's medically cleared for home d/c. Payor: Medicare Attending: Dr. Nugent Pt is a 82 year-old M post-op day 1 from a lumbar TLIF surgery, no complications postoperatively. Pt has a hx of worsening stenosis and lumbar pain. He expressed his primary concern as when his returns from her own rehab, that he does have a cg for her 4-hours per day, however he can't even pull up my own pants right now much less pull up hers, which I've had to do for years. His plan is to hire additional cg in the home, and is requesting Home Health for his initial recovery period. CLEAN UP PERSON provided a referral to [facility] , per his request. Will continue to follow and assist with any further evolving needs for d/c. Discharge Planning/Care Management CM Discharge Assessment Start: 09/06/23 12:30 Freq: Status: Active Protocol: Document 09/06/23 12:30 DPL (Rec: 09/06/23 12:33 DPL [id number]) Discharge Planning Assessment Assigned In Shop Service Technician ROYA Bunch Advance Directives? Yes Advance Directives on File No History Provided By Patient,Medical Record Has Patient been admitted in last 30 No days? Prior Living Arrangements House Household Members spouse Type of transporation used prior to Drives own vehicle admit Independent with ADL's Yes Is patient alert and oriented? Yes Comment N/A Caregiver for Another Yes: His has Parkinson's and is wheelchair bound. DME Already Rented / Owned Bath Bench,Elevated Toilet Seat,FWW / Walker Patient/Family Preference Home with Home Health Barriers to Discharge No Discharge Plan Home Community Services Physical Therapy Transportation Arrangement Son Referrals Initiated Home Health If patient plan is home with home health Yes : Has signed face to face form been completed? Medicare Choice List Provided Yes Medicare choice list reviewed on patient electronic tablet with SNF/HH Preference [facility] Whiteboard Updated in Patient Room with Yes name and ext. # of In Shop Service Technician Review Status In Process Please Provide Date Initial DC 09/06/23 Assessment Was Performed Pre-Anesthesia Assessment Start: 08/27/23 09:21 Freq: Status: Complete Protocol: Document 08/27/23 09:21 CAB (Rec: 08/27/23 10:32 CAB [id number]) Pre-Anesthesia Assessment Preferred Name Cuong Patient Information Reviewed Via Phone Assessment Assessment Completed With Patient Comment Pt states labs/EKG done [place] in [place]-not here- surgeon has Primary Care Provider Jose Delgado Seen Specialist in Last 12 Months Yes Specialist Seen Oncologist,Orthopedist Primary Language Japanese Automobile Damage Appraiser Required No Height 177.8 cm Weight 101.151 kg Body Mass Index (BMI) 32.0 Hearing Ability Normal Visual Impairment Blind Visual Assist Magnifying Glass Dentition Type Teeth, Natural Present Barriers to Learning Visual Comment Right eye near-total blindness Hx Anesthesia Reactions Yes: Hard time waking up, nausea with one of the back surgeries Hx Family Anesthesia Reaction No Hx Malignant Hyperthermia No Hx Blood Transfusions No Anesthesia Review Requested No Core Manager No alcohol intake current alcohol intake frequency 0-2 drinks per day Smoking Status Never smoker Substance Use Type does not use Pain Present Pain Reported Musculoskeletal Symptoms Abnormal Gait,Back Pain,Joint Stiffness,Joint Swelling, Radiating Pain into Limb History of Falling (Recent or History of No ) Patient is completely paralyzed or No completely immobile Mental Status Oriented to own ability Is patient on oxygen? No Does patient have OH/SOB No Hx Sleep Apnea No Currently Taking a Beta Jyoti No Can You Climb a Flight of Stairs Without No SOB Hx Chest Pain No Hx SOB No Hx Syncope or Dizziness No Anti-Coagulant Therapy No Has a Funding Analyst No Cardiac Testing No Hx Pacemaker/ICD No Pacemaker Rep Required? No Cardiac Clearance Received No Diet Type At Home Regular Dysphagia No Gastrointestinal Symptoms None Bladder Pattern Incontinent Urinary Catheter Present No Hx Urinary Self Catheterization No Diabetes No Hx Drug Resistant Organism No Presence of External or Internal Medical Yes: Maurice eye IOLs, left foot Devices Received a COVID vaccine? Yes Received all doses? Yes Marital Status Lives With spouse Current Living Arrangements House Number of Floors (Floors) Two Floors Support System Caregiver Does the Patient Have Assistance After No: has parkinson's, in a Surgery WC, having surgery 09/03/23 Patient Discharge Plan Description Return Home Comment Overnight length of stay per surgeon-Caregiver for will assist [email or web address] Additional comment Lives on [facility] Feels Safe in Current Environment Yes Been Physically Hurt or Threatened By a No Person in Current Environment Do you have thoughts of harming yourself None or others? Are you currently considering suicide? No Do you have a plan to hurt yourself or No Plan others? Do You Have Any Spiritual Beliefs That No May Affect Your HC Choices? Do You Have Any Cultural Practices That No May Affect Your HC Choices? Comment Orthodox Who Can We Speak to About Patient's Care Family, friends Identifying Code for Release of Patient Declines to issue Information Health Care Proxy/Next of Kin Alaina (daughter) Health Care Proxy Emergency Contact Name Suresh (daughter) Emergency Contact Advance Directives? Yes Advance Directives on File No Requested Patient Bring Advanced Yes Directives DOS Power of Char Filter Tank Tender Head Name Aicha () Power of Char Filter Tank Tender Head PAC Instructions Durable medical equipment, Medications to take/avoid, Nasal antibiotic,No ETOH/ petroleum product on skin DOS, NPO,Post-op transportation, Sturdy shoes/comfortable clothes,Do not bring valuables and remove jewelry
--- NOTE | 2023-09-06 12:40 | PM.PNPO.1 ---
Subjective Subjective Interval history: Cuong is a pleasant 82-year-old male who is postop day #1 s/p L4-[address] Nugent. This morning patient states he is doing very well, he is only having mild pain, sometimes moderate pain if he lays or sits for too long. He feels that he is good pain control with oral pain medication alone. Pain is mostly localized in his lower back, does not radiate down either leg, does not feel like it is in his hip either which he did feel preoperatively. He has been able to get up and urinate without issue. Was seen by both PT and OT today and feels that he was making good progress. Patient lives on [facility] with only his who also has Parkinson's and is not able to provide additional support for patient and his postop recovery. Feels that he may need to work on a few more ADLs with PT before he would feel safe to discharge to home with no additional support. His son in law is an EMT and is willing to stay with the patient for the first few days after he is home. Has elevator, walker, wheelchair and cane at home all to be used if needed during his recovery. Denies fever, chills, chest pain, SOB, nausea, vomiting. Exam Vital Signs (past 8 hours): - 09/06/23 07:00 09/06/23 07:00 09/06/23 08:30 Temperature Pulse Rate Respiratory Rate Blood Pressure Pulse Oximetry 96 94 Oxygen Delivery Method Nasal Cannula Nasal Cannula Oxygen Flow Rate 0 2 Fraction of Inspired Oxygen 28 09/06/23 08:57 Temperature 97.4 F L Pulse Rate 70 Respiratory Rate 18 Blood Pressure 123/65 Pulse Oximetry 98 Oxygen Delivery Method Oxygen Flow Rate 0 Fraction of Inspired Oxygen Fraction of Inspired Oxygen 28 SaO2/FiO2 Ratio 335 Oxygen Delivery Method Nasal Cannula Oxygen Flow Rate 0 Narrative Exam Narrative: Patient lying comfortably in bed during our interview today. No acute distress. AOx3. 5/5 strength with DF, PF, EHL bilaterally. Knee flexion and extension intact bilaterally. Gross sensation intact throughout bilateral lower extremities. Calves soft and non-tender bilaterally. SCDs are on and functioning Brisk capillary refill, PT pulses intact. Post-surgical dressing CDI. 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 Gynecomastia Surgical History (Updated 08/27/23 @ 10:15 by Claire Javed RN) Hx of arthroscopy of left knee Hx of laminectomy Hx of laminectomy H/O vasectomy Hx of bilateral cataract extraction Hx of LASIK S/P foot surgery, left Retinal detachment History of radical prostatectomy Social History household members: spouse Smoking Status: Never smoker alcohol intake: current Assessment & Plan Post-op Postoperative Procedures: Procedures Operation Date: 09/05/23 10:15 Actual Procedure Side Surgeon p L4-5 TLIF, L2-3, L3-4 laminectomies Demarcus Nugent MD Postoperative day: 1 Postoperative status: doing well Postoperative plan narrative: 1) Plan to discharge to home with son in law tomorrow. Patient will need at least one more day to work on mobility with PT prior to being sent to [facility]. Will need to get priority boarding pass for [employer], likely go home on 3:00pm [employer]. 2) Continue multimodal pain management. Will need to send outpatient meds tomorrow. 3) mechanical DVT prophylaxis. 4) weightbearing as tolerated, maintain BLT restrictions. 5) Keep dressing intact, clean, dry until 2 week postop appointment. No soaking the incision site in pools or tubs. No topical ointments or creams to the incision site. 6) Follow up at [facility] in 2 weeks for a postop appointment and wound check. All patient's questions were answered, he demonstrates understanding and is in agreement with the plan. Call our office if any questions or concerns arise. Quality VTE Deep Vein Thrombosis/Pulmonary Embolism Present on Admission: No
--- NOTE | 2023-09-06 14:10 | PT.IPTN ---
Current Diagnoses Spinal stenosis, lumbar region without neurogenic claudication (09/05/23) Spinal stenosis, lumbar region with neurogenic claudication (09/05/23) Surgery Performed Operation Date: 09/05/23 10:15 Actual Procedures p L4-5 TLIF, L2-3, L3-4 laminectomies - Demarcus Nugent MD Physical Therapy Treatment Note M2 PT-IP Current Condition Start: 09/06/23 08:17 Freq: NEEDED Status: Active Protocol: Document 09/06/23 09:19 MB (Rec: 09/06/23 11:13 MB [id number]) Physical Therapy Current Condition Current Condition Evaluation Date 09/06/23 Treatment Diagnosis TLIF M3 PT-IP Subjective Start: 09/06/23 08:17 Freq: NEEDED Status: Active Protocol: Document 09/06/23 14:33 TS (Rec: 09/06/23 14:51 TS [id number]) Subjective Physical Therapy Visit Type Type Treatment Note Visit Start Time 14:10 Visit Stop Time 14:33 Number of PAINT ROLLER WINDER Visits 1 Physical Therapy Visit Comments Patient Comments Pt reports needing pain meds but is willing to work with PT this afternoon. Therapy Pain Assessment Pain When Pain Assessed At Rest Pain Present Pain Present Pain Reported M4 PT-IP Mobility and Gait Start: 09/06/23 08:17 Freq: NEEDED Status: Active Protocol: Document 09/06/23 14:33 TS (Rec: 09/06/23 14:51 TS [id number]) PT-Bed Mobility Assessment Rolling Type of Rolling Log Rolling,Bilateral Level of Assist Standby Assistance Supine to Sit Supine to Sit Standby Assistance,1 Person Assistance Sit to Supine Sit to Supine Standby Assistance Scooting Scooting to Edge of Bed Standby Assistance PT-Transfer Assessment Sit to and From Stand Sit to and from Stand Standby Assistance,1 Person Assistance,Use of Upper Extremities Equipment Transfer Assistive Device Gait Belt,Front Wheeled Walker Orthotic/Prosthetic Devices or Brace: No Comments Mobility Comments Pt recalled 3/3 spinal precautions prior to mobility. Logroll to R side SBA, pt demonstrates good carryover of sequencing. Supine to sit SBA with BUE support. STS with FWW SBA, pt has good standing balance. He ambulated ~175'SBA with FWW and step thru gait. He ambulated back to room, sit to supine SBA with logroll into bed. Pt was left in bed, requesting pain meds, RN notified. Gait Assessment Gait Gait Assistance Required: Standby Assistance,1 Person Assist Distance (Feet) 175 Able to Maintain Weight Bearing Status Yes During Gait Assistive Devices Assistive Device Gait Belt,Front Wheeled Walker Orthotic/Prosthetic Devices or Brace: No Gait Deviations General Gait Pattern Decreased Feet Clearance, Flexed Trunk Factors Limiting Gait Function Factors Limiting Gait Function Decreased Activity Tolerance, Poor Balance Comments Gait Comments See mobility comments PT-Balance Assessment Sitting Balance and Reactions Static Sitting Balance Ability Normal Dynamic Sitting Balance Ability Normal Standing Balance and Reactions Static Standing Balance Ability Good Dynamic Standing Balance Ability Fair Device Used RW M5 PT-IP Objective Assessments Start: 09/06/23 08:17 Freq: NEEDED Status: Active Protocol: Document 09/06/23 09:19 MB (Rec: 09/06/23 11:31 MB [id number]) Orientation Orientation/Cognition Level of Alertness Alert Orientation Name,Age,Birthday,Month,Date, Year,Day of Week,Place, Situation Language Function Ability No Deficits Noted Safety Awareness Understands Safety Issues Gross Range of Motion Upper Extremity ROM Impairments Defer to OT Lower Extremity ROM Assessment Within Functional Limits Strength Lower Extremity Strength Assessment Within Functional Limits M7 PT-IP Assessment and Plan Start: 09/06/23 08:17 Freq: NEEDED Status: Active Protocol: Document 09/06/23 14:33 TS (Rec: 09/06/23 14:51 TS [id number]) PT Summary Assessment and Plan Potential Rehabilitation Potential Good Summary Impairments Balance,Bed Mobility,Transfers ,Gait,Activity Tolerance Progress Towards Goals Progressing Toward Goals Assessment Summary Cuong is making good progress with his mobility. He is SBA for all bed mobility and demonstrates good awareness of his precautions. He progressed his gait to ~175' SBA with FWW and step thru gait. He recalled 3/3 spinal precautions. PT is recommending home with assist. Goals Bed Mobility Goal Independent Transfer Goal Independent,Front Wheeled Walker,Four Wheeled Walker Gait Goal Independent,Front Wheel Walker ,Four Wheel Walker Gait Distance 150 Days to Meet Goals 2 Frequency of Treatment Frequency Of Treatment Twice a Day Treatment Plan Physical Therapy Treatment Plan Bed Mobility Training,Transfer Training,Gait Training, Therapeutic Exercise,Balance Retraining,Post Op Education, Neuromuscular Re-ed Precautions Lumbar Precautions Log Roll,No Twisting,Limit Bending,Lifting Restriction of 10 lbs,Gait Belt above Incisional Area Weight Bearing Status Weight Bearing Status Weight Bear as Tolerated Recommendations To Nursing Amount of Assist Needed 1 Person Assist Discharge Recommendations PT Discharge Recommendations Home with Assistance Transportation Needs at Discharge Private Vehicle
[2023-09-06 19:00] VITALS: O2SAT 98
[2023-09-06 20:00] VITALS: BP 130/63; PULSE 82; RESP 17; TEMP 36.8; O2SAT 98
[2023-09-06] MEDS: SENNOSIDES 8.6 MG TABLET 17.2 MG PO (20:00)
[2023-09-07] MEDS: OXYCODONE IR 10 MG TABLET PO ×8 (01:19→21:41)
--- NOTE | 2023-09-07 07:56 | P.PN_ITS ---
Subjective Subjective Interval history: Cuong is a pleasant 82-year-old male who is postop day #2 s/p L4-[address] Nugent. This morning patient states he is doing worse than yesterday, he is now having moderate-severe LBP. He reports he mostly has pain when he stands, not as severe when lying down. Pain is mostly localized in his lower back, does not radiate down either leg. He has been urinating in bedside urinal since it is too painful to get up and out of bed now. Was seen by both PT and OT yesterday and did very well, he has not seen them today however. Patient lives on [facility] with only his who also has Parkinson's and is not able to provide additional support for patient and his postop recovery. He will need to have better pain control and work on better/safe ambulation with PT before he can safely discharge to home as he has very little to no no additional support. His son in law is an EMT and is willing to stay with the patient for the first few days after he is home. Has elevator, walker, wheelchair and cane at home all to be used if needed during his recovery. Denies fever, chills, chest pain, SOB, nausea, vomiting. Exam Vital Signs (past 8 hours): Fraction of Inspired Oxygen 28 SaO2/FiO2 Ratio 335 Oxygen Delivery Method Room Air Oxygen Flow Rate 0 Narrative Exam Narrative: Patient lying comfortably in bed during our interview today. No acute distress. AOx3. Slightly more lethargic than yesterday. 5/5 strength with DF, PF, EHL right. 5/5 left PF, 4/5 left EHL, DF. Knee flexion and extension intact bilaterally, knee AROM 0-90. Gross sensation intact throughout bilateral lower extremities. Calves soft and non-tender bilaterally. Brisk capillary refill, PT pulses intact. Post-surgical dressing is saturated with blood. 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 Patient tolerated well. 1) Plan to discharge to home with son in law tomorrow. Patient will need at least one more day to work on mobility with PT and get pain under better control prior to being sent to [facility]. Will need to get priority boarding pass for [employer], likely go home on 3:00pm [employer]. 2) Continue multimodal pain management. Will need to send outpatient meds tomorrow. 3) Mechanical DVT prophylaxis. 4) Weightbearing as tolerated, maintain BLT restrictions. 5) Keep dressing intact, clean, dry until 2 week postop appointment. No soaking the incision site in pools or tubs. No topical ointments or creams to the incision site. 6) Follow up at [facility] orthopedics in 2 weeks for a postop appointment and wound check. All patient's questions were answered, he demonstrates understanding and is in agreement with the plan. Call our office if any questions or concerns arise. Quality VTE Deep Vein Thrombosis/Pulmonary Embolism Present on Admission: No
[2023-09-07 08:00] VITALS: BP 114/50; PULSE 79; RESP 18; TEMP 36.7; O2SAT 95
[2023-09-07 08:02] VITALS: O2SAT 97
[2023-09-07] MEDS: VIT C/E/ZN/COPPR/LUTEIN/ZEAXAN CAPSULE 1 CAP PO (09:20)
[2023-09-07] MEDS: DOCUSATE 100 MG CAPSULE PO ×2 (09:20→20:03)
[2023-09-07] MEDS: hydroCHLOROthiazide 25 MG TABLET 12.5 MG PO (09:20)
[2023-09-07] MEDS: polyethylene glycoL 3350 17 GM POWD.PACK PO (09:20)
[2023-09-07] MEDS: LOSARTAN 50 MG TABLET PO (09:20)
--- NOTE | 2023-09-07 10:50 | PT.IPTN ---
Current Diagnoses Spinal stenosis, lumbar region without neurogenic claudication (09/05/23) Spinal stenosis, lumbar region with neurogenic claudication (09/05/23) Surgery Performed Operation Date: 09/05/23 10:15 Actual Procedures p L4-5 TLIF, L2-3, L3-4 laminectomies - Demarcus Nugent MD Physical Therapy Treatment Note M2 PT-IP Current Condition Start: 09/06/23 08:17 Freq: NEEDED Status: Active Protocol: Document 09/06/23 09:19 MB (Rec: 09/06/23 11:13 MB [id number]) Physical Therapy Current Condition Current Condition Evaluation Date 09/06/23 Treatment Diagnosis TLIF M3 PT-IP Subjective Start: 09/06/23 08:17 Freq: NEEDED Status: Active Protocol: Document 09/07/23 11:19 TS (Rec: 09/07/23 11:31 TS [id number]) Subjective Physical Therapy Visit Type Type Treatment Note Visit Start Time 10:50 Visit Stop Time 11:16 Number of SLOT MACHINE REPAIRER Visits 2 Physical Therapy Visit Comments Patient Comments Pt found resting in bed, reports having increased pain in legs and is not moving as well as yesterday. Pt is agreeable to PT. Therapy Pain Assessment Pain When Pain Assessed During Mobility Pain Present Pain Present Pain Reported Location Back Intensity 7 Scale Used Numeric (0 - 10) Description With Movement Pain Behaviors Facial Grimacing,Guarding, Moaning,Restlessness,Wincing M4 PT-IP Mobility and Gait Start: 09/06/23 08:17 Freq: NEEDED Status: Active Protocol: Document 09/07/23 11:19 TS (Rec: 09/07/23 11:31 TS [id number]) PT-Bed Mobility Assessment Rolling Type of Rolling Log Rolling,Bilateral Level of Assist Standby Assistance Supine to Sit Supine to Sit Minimal Assistance,1 Person Assistance Scooting Scooting to Edge of Bed Standby Assistance PT-Transfer Assessment Sit to and From Stand Sit to and from Stand Minimal Assistance,1 Person Assistance Equipment Transfer Assistive Device Gait Belt,Front Wheeled Walker Orthotic/Prosthetic Devices or Brace: No Comments Mobility Comments Logroll to L side SBA, pt demonstrates good carryover of sequencing. Supine to sit Ophelia for uprighting trunk, pt cued for LE's over EOB. STS with FWW Ophelia for balance coming into standing. Pt ambulated ~80'CGA with FWW, pt fatigued quickly and reported weakness in LE's. Pt ambulated back to room, was left in chair with ice packs, all needs met. Gait Assessment Gait Gait Assistance Required: Contact Guard Assist,1 Person Assist Distance (Feet) 80 Able to Maintain Weight Bearing Status Yes During Gait Assistive Devices Assistive Device Gait Belt,Front Wheeled Walker Orthotic/Prosthetic Devices or Brace: No Gait Deviations General Gait Pattern Decreased Feet Clearance, Flexed Trunk Factors Limiting Gait Function Factors Limiting Gait Function Decreased Activity Tolerance, Poor Balance Comments Gait Comments See mobility comments PT-Balance Assessment Sitting Balance and Reactions Static Sitting Balance Ability Good Dynamic Sitting Balance Ability Good Standing Balance and Reactions Static Standing Balance Ability Good Dynamic Standing Balance Ability Fair Device Used RW M5 PT-IP Objective Assessments Start: 09/06/23 08:17 Freq: NEEDED Status: Active Protocol: Document 09/06/23 09:19 MB (Rec: 09/06/23 11:31 MB [id number]) Orientation Orientation/Cognition Level of Alertness Alert Orientation Name,Age,Birthday,Month,Date, Year,Day of Week,Place, Situation Language Function Ability No Deficits Noted Safety Awareness Understands Safety Issues Gross Range of Motion Upper Extremity ROM Impairments Defer to OT Lower Extremity ROM Assessment Within Functional Limits Strength Lower Extremity Strength Assessment Within Functional Limits M7 PT-IP Assessment and Plan Start: 09/06/23 08:17 Freq: NEEDED Status: Active Protocol: Document 09/07/23 11:19 TS (Rec: 09/07/23 11:31 TS [id number]) PT Summary Assessment and Plan Potential Rehabilitation Potential Good Summary Impairments Balance,Bed Mobility,Transfers ,Gait,Activity Tolerance Progress Towards Goals Slow Progress due to Pain,Slow Progress due to Activity Tolerance Assessment Summary Cuong is having more difficulty today progressing his mobility . He required Ophelia for bed mobility, did demonstrate good carryover of sequencing. He ambulated ~80'CGA with FWW. He has increased pain and fatigue from yesterday which is limiting his mobility this morning. PT at this time is recommending Home 24/7 vs SNF. Pt has a caregiver that can help him 4 hours a day but at this time pt would require 24/ 7 assistance for safety. Pt could benefit from SNF to improve strength and activity tolerance before returning home. Goals Bed Mobility Goal Independent Transfer Goal Independent,Front Wheeled Walker,Four Wheeled Walker Gait Goal Independent,Front Wheel Walker ,Four Wheel Walker Gait Distance 150 Days to Meet Goals 2 Frequency of Treatment Frequency Of Treatment Twice a Day Treatment Plan Physical Therapy Treatment Plan Bed Mobility Training,Transfer Training,Gait Training, Therapeutic Exercise,Balance Retraining,Post Op Education, Neuromuscular Re-ed Precautions Lumbar Precautions Log Roll,No Twisting,Limit Bending,Lifting Restriction of 10 lbs,Gait Belt above Incisional Area Weight Bearing Status Weight Bearing Status Weight Bear as Tolerated Recommendations To Nursing Amount of Assist Needed 1 Person Assist Discharge Recommendations PT Discharge Recommendations Home with 09/10 Assist Available,SNF Rehab,Home vs SNF Transportation Needs at Discharge Private Vehicle,Wheelchair/ Cabulance
--- NOTE | 2023-09-07 13:10 | PT.IPTN ---
Current Diagnoses Spinal stenosis, lumbar region without neurogenic claudication (09/05/23) Spinal stenosis, lumbar region with neurogenic claudication (09/05/23) Surgery Performed Operation Date: 09/05/23 10:15 Actual Procedures p L4-5 TLIF, L2-3, L3-4 laminectomies - Demarcus Nugent MD Physical Therapy Treatment Note M2 PT-IP Current Condition Start: 09/06/23 08:17 Freq: NEEDED Status: Active Protocol: Document 09/06/23 09:19 MB (Rec: 09/06/23 11:13 MB [id number]) Physical Therapy Current Condition Current Condition Evaluation Date 09/06/23 Treatment Diagnosis TLIF M3 PT-IP Subjective Start: 09/06/23 08:17 Freq: NEEDED Status: Active Protocol: Document 09/07/23 13:31 TS (Rec: 09/07/23 13:39 TS [id number]) Subjective Physical Therapy Visit Type Type Treatment Note Visit Start Time 13:10 Visit Stop Time 13:30 Number of BIKE TECHNICIAN Visits 3 Physical Therapy Visit Comments Patient Comments Pt found resting in bed, is agreeable to PT. Therapy Pain Assessment Pain When Pain Assessed During Mobility Pain Present Pain Present Pain Reported M4 PT-IP Mobility and Gait Start: 09/06/23 08:17 Freq: NEEDED Status: Active Protocol: Document 09/07/23 13:31 TS (Rec: 09/07/23 13:39 TS [id number]) PT-Bed Mobility Assessment Rolling Type of Rolling Log Rolling,Bilateral Level of Assist Standby Assistance Supine to Sit Supine to Sit Standby Assistance Sit to Supine Sit to Supine Standby Assistance Scooting Scooting to Edge of Bed Standby Assistance PT-Transfer Assessment Sit to and From Stand Sit to and from Stand Standby Assistance Equipment Transfer Assistive Device Gait Belt,Front Wheeled Walker Orthotic/Prosthetic Devices or Brace: No Comments Mobility Comments Supine to sit SBA with BUE support, pt demonstrates good awareness of precautions. STS from bed with FWW SBA. Pt ambulated ~200'SBA with emerging step thru gait and use of FWW. Sit to supine into bed SBA and with logroll technique. Pt was left in bed, all needs met. Gait Assessment Gait Gait Assistance Required: Standby Assistance Distance (Feet) 200 Able to Maintain Weight Bearing Status Yes During Gait Assistive Devices Assistive Device Gait Belt,Front Wheeled Walker Orthotic/Prosthetic Devices or Brace: No Gait Deviations General Gait Pattern Decreased Feet Clearance, Flexed Trunk Factors Limiting Gait Function Factors Limiting Gait Function Decreased Activity Tolerance, Poor Balance Comments Gait Comments See mobility comments PT-Balance Assessment Sitting Balance and Reactions Static Sitting Balance Ability Good Dynamic Sitting Balance Ability Good Standing Balance and Reactions Static Standing Balance Ability Good Dynamic Standing Balance Ability Fair Device Used RW M5 PT-IP Objective Assessments Start: 09/06/23 08:17 Freq: NEEDED Status: Active Protocol: Document 09/06/23 09:19 MB (Rec: 09/06/23 11:31 MB [id number]) Orientation Orientation/Cognition Level of Alertness Alert Orientation Name,Age,Birthday,Month,Date, Year,Day of Week,Place, Situation Language Function Ability No Deficits Noted Safety Awareness Understands Safety Issues Gross Range of Motion Upper Extremity ROM Impairments Defer to OT Lower Extremity ROM Assessment Within Functional Limits Strength Lower Extremity Strength Assessment Within Functional Limits M7 PT-IP Assessment and Plan Start: 09/06/23 08:17 Freq: NEEDED Status: Active Protocol: Document 09/07/23 13:31 TS (Rec: 09/07/23 13:39 TS [id number]) PT Summary Assessment and Plan Potential Rehabilitation Potential Good Summary Impairments Balance,Bed Mobility,Transfers ,Gait,Activity Tolerance Progress Towards Goals Progressing Toward Goals Assessment Summary Cuong is demonstrating improved mobility from this morning. He is SBA for all bed mobility and demonstrates good technique. He progressed his gait to ~200SBA with FWW and an emerging step thru gait. PT is recommending home with 24/ 7 assist. Pt does not currently have 24/7 assist at home. Goals Bed Mobility Goal Independent Transfer Goal Independent,Front Wheeled Walker,Four Wheeled Walker Gait Goal Independent,Front Wheel Walker ,Four Wheel Walker Gait Distance 150 Days to Meet Goals 2 Frequency of Treatment Frequency Of Treatment Twice a Day Treatment Plan Physical Therapy Treatment Plan Bed Mobility Training,Transfer Training,Gait Training, Therapeutic Exercise,Balance Retraining,Post Op Education, Neuromuscular Re-ed Precautions Lumbar Precautions Log Roll,No Twisting,Limit Bending,Lifting Restriction of 10 lbs,Gait Belt above Incisional Area Weight Bearing Status Weight Bearing Status Weight Bear as Tolerated Recommendations To Nursing Amount of Assist Needed 1 Person Assist Discharge Recommendations PT Discharge Recommendations Home with 24/7 Assist Available Transportation Needs at Discharge Private Vehicle
--- NOTE | 2023-09-07 15:33 | CM.DPNOTE ---
DCP Cont Therapies saying patient may benefit from SNF. Met w/patient to discuss. Patient admits he was hopeful to be moving more easily, did not think he would need much assist when planning his recovery. Patient reports he has a caregiver that helps his 4 hours daily, says he could ask that this be increased to 8 hours daily. Asked patient if there is anyone that could help him overnight, patient will consider. Suggested another discussion about dispo options tomorrow after therapy session as patient seems to be right on the line of SNF vs Home w/HH and would like to avoid SNF if possible. Patient can likely get 8 hours of in home care daily. Friends may be able to assist with meal prep (?) Patient would likely be home alone in the evenings. CM team following closely for discharge coordination. No SNF referrals made today. SONA
[2023-09-07 20:00] VITALS: BP 127/61; PULSE 75; RESP 18; TEMP 36.6; O2SAT 98
[2023-09-07] MEDS: SENNOSIDES 8.6 MG TABLET 17.2 MG PO (20:03)
[2023-09-07] MEDS: ACETAMINOPHEN 325 MG TABLET 650 MG PO (21:41)
[2023-09-08] MEDS: OXYCODONE IR 10 MG TABLET PO ×3 (02:20→12:14)
[2023-09-08 07:00] VITALS: O2SAT 93
[2023-09-08 08:00] VITALS: BP 131/75; PULSE 73; RESP 16; TEMP 36.4; O2SAT 93
--- NOTE | 2023-09-08 08:43 | P.DS_ITS ---
History of Present Illness History of Present Illness Date Patient Seen: 09/08/23 Time Patient Seen: 08:43 Chief complaint: Back pain Narrative: Patient's pain is moderate. Denies fever or chills. No nausea or vomiting. Discharge Providers Provider Date of admission: 09/05/23 08:40 Discharge Date: 09/08/23 Primary care physician: Jose Delgado MD Consults: 09/05/23 14:44 Consult to Occupational Therapy Evaluate & Treat Comment: Physician Instructions: Evaluate and treat Consult to Physical Therapy Evaluate & Treat Comment: Physician Instructions: Evaluate and Treat Discharge provider: Ian Hall PA-C Summary Hospital Course Discharge Diagnosis: 1. 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 Epidural lipomatosis Hospital Course: 1. L4-5 Postero-lateral and posterior interbody fusion 2. L4-5 interbody cage placement. 3. L4-5 decompressive laminectomy with bilateral facetecomies 4. L4-5 Posterior non-segmental instrumentation 5. L2-3, L3-4 laminectomies with bilateral partial facetecomies 6. Epidural lipoma excision from epidural space for decompression 7. [place] of bone marrow from iliac crest 8. Utilization of microsurgical technique and operating microscope Same procedure as scheduled: Yes Indications: Patient has been having chronic back pain and worsening lumbar radiculopathy and symptoms of neurogenic claudication. Patient had history of L4-5 laminectomy with recent worsening of radiculopathy correlating with his foraminal stenosis at L4-5 level. Patient also has neurogenic claudication correlating with his severe L2-3 L3-4 central stenosis. Patient failed multiple conservative management with worsening pain weakness and numbness in her lower extremity. Patient has been having difficulty performing activity of daily living. After discussing risks benefits of treatment options, patient elected proceed with surgery. Surgeon: Demarcus Nugent Engraving Press Operator: Eleni Malin Click Yes if Unassisted: No Anesthesia Type: General Operative Notes Closure Type: primary Specimen(s): none sent Prosthetic devices, grafts, tissues, transplants, or devices: Globus revolve screws, Sable cage Applied: catheter Estimated Blood Loss (mL): 50 Blood products transfused: none Patient admitted to the hospital for the above-mentioned procedure. Patient consented to the same. Patient underwent lumbar fusion September 05, 2023. Patient back in his room recovering well as in stable condition. Multimodal pain management. Limit bending, twisting, lifting. Discharge home today after physical therapy if safe for home environment. Exam Vital Signs (past 8 hours): - 09/08/23 07:00 Oxygen Delivery Method Room Air Fraction of Inspired Oxygen 28 SaO2/FiO2 Ratio 335 Oxygen Delivery Method Room Air Oxygen Flow Rate 0 Narrative Exam Narrative: 82-year-old male resting comfortably in bed sitting up having breakfast. Motor functions intact bilateral lower extremities. Sensation grossly intact to light touch bilateral lower extremities. 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 Gynecomastia Surgical History (Updated 08/27/23 @ 10:15 by Claire Javed RN) Hx of arthroscopy of left knee Hx of laminectomy Hx of laminectomy H/O vasectomy Hx of bilateral cataract extraction Hx of LASIK S/P foot surgery, left Retinal detachment History of radical prostatectomy Social History household members: spouse Smoking Status: Never smoker alcohol intake: current Discharge Assessment & Plan Assessment and Plan Assessment: Patient progressing status post lumbar fusion Plan of Treatment: Multimodal pain management Limit bending, twisting, lifting Discharge home today after physical therapy if safe for home environment Discharge Plan Discharge Plan Patient Disposition: Home Discharge orders & Medications Prescriptions: New acetaminophen 325 mg Tablet 650 mg PO Q6H PRN (Reason: Fever/Mild Pain (1-3)) Qty: 60 0RF docusate sodium 100 mg Capsule 100 mg PO BID Qty: 10 0RF oxycodone 5 mg Tablet 5 mg PO Q3H PRN (Reason: Pain, Moderate (4-6)) Qty: 40 0RF Continued losartan-hydrochlorothiazide 50-12.5 mg tablet 1 tab PO DAILY Qty: 90 1RF enzalutamide 40 mg Tablet 160 mg PO DAILY PreserVision AREDS-2 250-90-40-1 mg Capsule 2 tab PO DAILY Discontinued ibuprofen 400 mg Tablet 400 mg PO DAILY Follow up/Referrals: Demarcus Nugent MD [Physician] - 09/21/23 2:30 pm (Follow up w/ Earl Arceo PA-C, at [facility] in [place].) Jose Delgado MD [Primary Care Provider] - Diet/Activity/Treatments Diet: Diet as Tolerated Activity: No deep bending or twisting at the waist. No lifting more than 10 pounds. Skin/Wound/Dressing Care Report to your healthcare provider any signs of infection, such as:: chills, fever, night sweats, unusual drainage and unusual redness Dressing: May shower. Keep dressing as dry as possible. If dressing becomes wet or dirty, may remove and replace with clean, dry gauze. No bathing or otherwise soaking incisions. Do not apply any creams, lotions, or ointments to incisions. Visit Report/Discharge Packet Instructions: DI for Prescription Opioid Use, DI for Transforaminal Lumbar Interbody Fusion Stand Alone Forms: Congestive Heart Failure, Patient Portal/API, Stroke Signs & Symptoms, Surgery Discharge Discharge Data Primary Care Provider: Jose Delgado Quality VTE Deep Vein Thrombosis/Pulmonary Embolism Present on Admission: No
[2023-09-08] MEDS: hydroCHLOROthiazide 25 MG TABLET 12.5 MG PO (09:05)
[2023-09-08 09:06] VITALS: BP 131/75; PULSE 73
[2023-09-08] MEDS: LOSARTAN 50 MG TABLET PO (09:06)
[2023-09-08] MEDS: DOCUSATE 100 MG CAPSULE PO (09:06)
--- NOTE | 2023-09-08 09:11 | PT.IPTN ---
Current Diagnoses Spinal stenosis, lumbar region without neurogenic claudication (09/05/23) Spinal stenosis, lumbar region with neurogenic claudication (09/05/23) Surgery Performed Operation Date: 09/05/23 10:15 Actual Procedures p L4-5 TLIF, L2-3, L3-4 laminectomies - Demarcus Nugent MD Physical Therapy Treatment Note M2 PT-IP Current Condition Start: 09/06/23 08:17 Freq: NEEDED Status: Active Protocol: Document 09/06/23 09:19 MB (Rec: 09/06/23 11:13 MB [id number]) Physical Therapy Current Condition Current Condition Evaluation Date 09/06/23 Treatment Diagnosis TLIF M3 PT-IP Subjective Start: 09/06/23 08:17 Freq: NEEDED Status: Active Protocol: Document 09/08/23 10:33 TS (Rec: 09/08/23 10:41 TS [id number]) Subjective Physical Therapy Visit Type Type Treatment Note Visit Start Time 09:11 Visit Stop Time 09:30 Number of STEEL [employer]INTER Visits 4 Physical Therapy Visit Comments Patient Comments Pt found resting in bed, reports being concerned about going home. He does have a paid caregiver that he can have for more hours if needed. Pt is agreeable to PT. Therapy Pain Assessment Pain When Pain Assessed During Mobility Pain Present Pain Present Pain Reported M4 PT-IP Mobility and Gait Start: 09/06/23 08:17 Freq: NEEDED Status: Active Protocol: Document 09/08/23 10:33 TS (Rec: 09/08/23 10:41 TS [id number]) PT-Bed Mobility Assessment Rolling Type of Rolling Log Rolling,Bilateral Level of Assist Standby Assistance Supine to Sit Supine to Sit Standby Assistance Scooting Scooting to Edge of Bed Standby Assistance PT-Transfer Assessment Sit to and From Stand Sit to and from Stand Standby Assistance Equipment Transfer Assistive Device Gait Belt,Front Wheeled Walker Orthotic/Prosthetic Devices or Brace: No Comments Mobility Comments Logroll to L side SBA, pt c/o increasing pain into legs. Supine to sit SBA with BUE support pushing from bed to upright trunk. STS with FWW SBA. He ambulated ~200'SBA with FWW, had no buckling or LOB. Pt ambulated back to room , was left in chair, all needs met. Gait Assessment Gait Gait Assistance Required: Standby Assistance Distance (Feet) 200 Able to Maintain Weight Bearing Status Yes During Gait Assistive Devices Assistive Device Gait Belt,Front Wheeled Walker Orthotic/Prosthetic Devices or Brace: No Gait Deviations General Gait Pattern Decreased Feet Clearance, Flexed Trunk Factors Limiting Gait Function Factors Limiting Gait Function Decreased Activity Tolerance, Poor Balance Comments Gait Comments See mobility comments PT-Balance Assessment Sitting Balance and Reactions Static Sitting Balance Ability Good Dynamic Sitting Balance Ability Good Standing Balance and Reactions Static Standing Balance Ability Good Dynamic Standing Balance Ability Fair Device Used RW M5 PT-IP Objective Assessments Start: 09/06/23 08:17 Freq: NEEDED Status: Active Protocol: Document 09/06/23 09:19 MB (Rec: 09/06/23 11:31 MB [id number]) Orientation Orientation/Cognition Level of Alertness Alert Orientation Name,Age,Birthday,Month,Date, Year,Day of Week,Place, Situation Language Function Ability No Deficits Noted Safety Awareness Understands Safety Issues Gross Range of Motion Upper Extremity ROM Impairments Defer to OT Lower Extremity ROM Assessment Within Functional Limits Strength Lower Extremity Strength Assessment Within Functional Limits M7 PT-IP Assessment and Plan Start: 09/06/23 08:17 Freq: NEEDED Status: Active Protocol: Document 09/08/23 10:33 TS (Rec: 09/08/23 10:41 TS [id number]) PT Summary Assessment and Plan Potential Rehabilitation Potential Good Summary Impairments Balance,Bed Mobility,Transfers ,Gait,Activity Tolerance Progress Towards Goals Progressing Toward Goals Assessment Summary Cuong is making progress with his mobility. He is SBA for all bed mobility and demonstrates good awareness of spinal precautions. He continues to ambulate ~200'SBA with FWW. Pt has some concerns about going home, does have a paid caregiver to assist him. PT is recommending home with 09/10 assist. Goals Bed Mobility Goal Independent Transfer Goal Independent,Front Wheeled Walker,Four Wheeled Walker Gait Goal Independent,Front Wheel Walker ,Four Wheel Walker Gait Distance 150 Days to Meet Goals 2 Frequency of Treatment Frequency Of Treatment Twice a Day Treatment Plan Physical Therapy Treatment Plan Bed Mobility Training,Transfer Training,Gait Training, Therapeutic Exercise,Balance Retraining,Post Op Education, Neuromuscular Re-ed Precautions Lumbar Precautions Log Roll,No Twisting,Limit Bending,Lifting Restriction of 10 lbs,Gait Belt above Incisional Area Weight Bearing Status Weight Bearing Status Weight Bear as Tolerated Recommendations To Nursing Amount of Assist Needed 1 Person Assist Discharge Recommendations PT Discharge Recommendations Home with 09/10 Assist Available Transportation Needs at Discharge Private Vehicle
--- NOTE | 2023-09-08 11:16 | CM.DPNOTE ---
DC Note Patient has been discharged home today and is agreeable to plan. Therapy has cleared patient for this plan. Patient reports he will increase their 4 hours daily caregiving to 8 hours daily caregiving during his recovery. Patient agreeable to [facility] services to assist with education, reminders about precautions, home safety assessment and strengthening exercises. Placed call to Amari at [facility] who reports he has everything needed for start of care except HH order. [facility] order for RN/PT/OT, start of care expected 6..24. Patient does not have a reservation for the [employer]. Priority board ferry pass completed for [facility], provided copy to patient. Plan: Discharge home with step son to transport, [facility] RN/PT/OT, in home care. SONA
--- NOTE | 2023-09-08 14:38 | PC.NURSE ---
1422--pt discharged home w/ son-in-law; written and verbal discharge instructions given to pt and family; questions answered; verbalized understanding; iv removed intact; pt escorted to private vehicle via w/c; all belongings sent w/ pt
--- NOTE | 2023-09-10 14:52 | CM.DPNOTE ---
DCP Note BARIATRIC PHYSICIAN received notice from chelsey at [facility] of missing f2f. ROYA Cortés found it misplaced among the CM paperwork. FAVIO Rogers scanned it into his chart and this BARIATRIC PHYSICIAN notified Chelsey that the f2f is now available for their reference. ROYA Gutierrez
== END 2023-09-08 14:22 | disposition home health service (06) | DRG 455 ==
PROVIDERS: Admitting Provider Orthopaedic Surgery Orthopaedic Surgery of the Spine; PCP Family Medicine; Referring Provider Orthopaedic Surgery Orthopaedic Surgery of the Spine; Visit Provider Orthopaedic Surgery Orthopaedic Surgery of the Spine
PROC: 0SG00AJ Fusion of Lumbar Vertebral Joint with Interbody Fusion Device, Posterior Approach, Anterior Column, Open Approach (ICD-10-PCS; principal; 2023-09-05 10:15)
DX: M48.062 Spinal stenosis, lumbar region with neurogenic claudication (principal); M54.16 Radiculopathy, lumbar region; E88.2 Lipomatosis, not elsewhere classified; I10 Essential (primary) hypertension; C61 Malignant neoplasm of prostate; Z98.890 Other specified postprocedural states
CPT/HCPCS: 36415; 72100; 76000; 85014; 85018; 94760; 97116; 97161; 97165; 97530; 97535; C1713; C9290; J0171; J0330; J0690; J1100; J1170; J1885; J2405; J2704; J3010

== ENCOUNTER → 2024-04-22 10:28 | Outpatient (CLI) | payer MEDICARE, OTHER, SELFPAY ==
[2023-09-05 14:54] VITALS: BMI 30.9
[2024-04-22 18:32] LABS: Hematocrit 40.1 % (41-53); Hemoglobin 13.6 g/dL (13.5-17.5); Mean Corpuscular Volume 94.2 fL (80-100); Platelet Count 153 X10^3/uL (150-400); Red Blood Cell Count 4.26 X10^6/uL (4.5-5.9); Red Cell Distribution Width 14.3 % (11.6-14.8); White Blood Cell Count 5.6 X10^3/uL (4.5-11.0)
[2024-04-22 18:46] LABS: Alanine Aminotransferase 18 IU/L (<50); Albumin 4.3 g/dL (3.5-5.0); Albumin Globulin Ratio 1.6 (1.0-2.8); Alkaline Phosphatase 82 U/L (38-126); Aspartate Aminotransferase 33 IU/L (17-59); BUN Creatinine Ratio 21.6 (6-22); Bilirubin Total 0.5 mg/dL (0.2-1.3); Blood Urea Nitrogen 22 mg/dL (9-20); Calcium 9.5 mg/dL (8.4-10.2); Carbon Dioxide 26 mmol/L (22-32); Chloride 103 mmol/L (98-107); Cholesterol 210 mg/dL (140-199); Estimated Glomerular Filt Rate > 60 mL/min (>60); Globulin 2.7 g/dL (1.7-4.1); Glucose 96 mg/dL (80-110); HDL Cholesterol 65 mg/dL (40-60); HEMOLYSIS < 15 (0-50); LDL Cholesterol Calculated 89 mg/dL (<100); Potassium 4.3 mmol/L (3.4-5.1); Sodium 137 mmol/L (137-145); Triglycerides 278 mg/dL (35-150); Uric Acid 5.5 mg/dL (3.5-8.5)
[2024-04-22 18:49] LABS: Hemoglobin A1C% w Est Avg Glu 5.2 % (4.0-6.0)
[2024-04-22 19:13] LABS: TSH w/ Reflex to FT4 4.57 uIU/mL (0.47-4.68)
== END ==
PROVIDERS: PCP Family Medicine; Visit Provider Physician Assistant Medical
DX: D64.9 Anemia, unspecified (principal); R73.9 Hyperglycemia, unspecified; R53.83 Other fatigue; R79.89 Other specified abnormal findings of blood chemistry; R42 Dizziness and giddiness; R11.2 Nausea with vomiting, unspecified; E78.5 Hyperlipidemia, unspecified; D61.818 Other pancytopenia; M10.9 Gout, unspecified
CPT/HCPCS: 80053; 80061; 83036; 84443; 84550; 85027

== ENCOUNTER → 2024-06-10 14:32 | Outpatient (CLI) | payer MEDICARE, OTHER, SELFPAY ==
[2023-09-05 14:54] VITALS: BMI 30.9
[2024-06-10 18:55] LABS: Add Manual Diff / Slide Review NO; Basophils Absolute Auto 0 /uL (0-100); Basophils Percent Auto 0.5 % (0-2); Eosinophils Absolute Auto 0 /uL (0-450); Hematocrit 42.3 % (41-53); Hemoglobin 14.2 g/dL (13.5-17.5); Lymphocytes Absolute Auto 1400 /uL (1100-4500); Mean Corpuscular HGB Conc 33.5 % (30-36); Mean Corpuscular Hemoglobin 32.1 PG (26-34); Mean Corpuscular Volume 95.9 fL (80-100); Monocytes Absolute Auto 300 /uL (0-900); Monocytes Percent Auto 6.8 % (3-14); Neutrophils Absolute Auto 2900 /uL (1500-7000); Neutrophils Percent Auto 61.7 % (50-75); Platelet Count 166 X10^3/uL (150-400); Red Blood Cell Count 4.41 X10^6/uL (4.5-5.9); Red Cell Distribution Width 14.2 % (11.6-14.8); White Blood Cell Count 4.6 X10^3/uL (4.5-11.0)
[2024-06-10 19:22] LABS: Alanine Aminotransferase 24 IU/L (<50); Albumin 4.6 g/dL (3.5-5.0); Albumin Globulin Ratio 1.6 (1.0-2.8); Alkaline Phosphatase 81 U/L (38-126); Aspartate Aminotransferase 58 IU/L (17-59); BUN Creatinine Ratio 20.9 (6-22); Bilirubin Total 0.6 mg/dL (0.2-1.3); Blood Urea Nitrogen 19 mg/dL (9-20); Calcium 9.8 mg/dL (8.4-10.2); Carbon Dioxide 27 mmol/L (22-32); Chloride 100 mmol/L (98-107); Estimated Glomerular Filt Rate > 60 mL/min (>60); Globulin 2.9 g/dL (1.7-4.1); Glucose 150 mg/dL (80-110); HEMOLYSIS 18 (0-50); Potassium 4.1 mmol/L (3.4-5.1); Sodium 137 mmol/L (137-145); Total Protein 7.5 g/dL (6.3-8.2)
[2024-06-10 19:49] LABS: Prostate Specific Antigen 0.616 ng/mL (0.10-4.00)
== END ==
PROVIDERS: PCP Family Medicine; Visit Provider Student in an Organized Health Care Education/Training Program
DX: C61 Malignant neoplasm of prostate (principal)
CPT/HCPCS: 80053; 84153; 85025

== ENCOUNTER → 2024-08-07 11:14 | Outpatient (CLI) | payer MEDICARE, OTHER, SELFPAY ==
[2023-09-05 14:54] VITALS: BMI 30.9
--- NOTE | 2024-08-07 11:17 | DI.ECHO.S_ITS ---
[facility]---------+ [facility] : : [address] : : [place] : : [id number] : : Phone: [phone] Echocardiogram Report + + :Name: LIZETT RUELAS I Study Date: 08/07/2024 Height: 69 in : :[facility] ReadingLocation: Weight: 205 lb : : Gender: Male BSA: 2.1 m2 : :: 1940 Age: 83 yrs BP: 136/83 mmHg: :Reason For Study: POSSIBLE ATRIAL FIBRILLATION : :Ordering Physician: SRINIVASAN, : :APPLE Performed By: Orestes Toribio : :Referring: APPLE MATTSON : + + Interpretation Summary 1) Normal left ventricular thickness, size, wall motion, and systolic function (EF 55-60%). 2) Normal right ventricular size and function. 3) There is mild mitral regurgitation. 4) The ascending aorta is mildly enlarged at 4.1cm. 5) No prior Echo available for comparison. Procedure: A two-dimensional transthoracic echocardiogram with color flow and Doppler was performed. The study quality was technically adequate. There is no prior echocardiogram noted for this patient. The heart rate ranged between 51-74 bpm during the study. Left Ventricle: The left ventricle is normal in size. There is normal left ventricular wall thickness. There is no ventricular septal defect visualized. The ejection fraction is estimated to be 55-60%. There are no focal wall motion abnormalities. Diastolic parameters suggest a relaxation abnormality of the left ventricle, consistent with probable normal filling pressures. Right Ventricle: The right ventricle is normal in size and function. Atria: The left atrial size is normal. Right atrial size is normal. There is no Doppler evidence for an interatrial shunt. Mitral Valve: The mitral valve leaflets appear mildly thickened, but open well. The mitral valve leaflets are mildly calcified. There is mild mitral regurgitation. Aortic Valve: The aortic valve is trileaflet. The aortic valve is mildly calcified. The aortic valve opens well. There is no aortic valve stenosis. No aortic regurgitation is present. Tricuspid Valve: The tricuspid valve leaflets are thin and pliable. There is a trace or physiologic amount of tricuspid regurgitation. Pulmonic Valve: The pulmonic valve leaflets are thin and pliable; valve motion is normal. There is trace pulmonic regurgitation. Great Vessels: The aortic root is borderline dilated. The ascending aorta is mildly enlarged. The pulmonary artery is normal size. The IVC is of normal diameter and collapses greater than 50% with a sniff. This suggests a low right atrial pressure of 3 mm Hg. Pericardium/ Pleura There is no pericardial effusion. There is no pleural effusion. MMode/2D Measurements & Calculations LVIDd: 5.8 cm LVOT diam: 2.1 cm LVIDs: 4.3 cm Ao root diam: 3.8 cm FS: 25.5 % asc Aorta Diam: 4.1 cm EPSS: 0.79 cm Ao Arch Diam (Prox Trans): 2.8 cm IVSd: 1.0 cm LVPWd: 1.0 cm LV carreno. diameter/BSA (cm/m^2): 2.8 LV sys. diameter/BSA (cm/m^2): 2.1 LA A2 area: 19.1 cm2 RA long axis: 5.4 cm LA A4 area: 22.5 cm2 RA area: 15.3 cm2 LA length (vol): 5.7 cm RA vol: 36.8 ml LA vol: 63.3 ml RA : 17.6 ml/m2 LA vol index: 30.3 ml/m2 IVC diam: 1.5 cm RVD1 (basal): 3.7 cm RVD2 (mid): 2.4 cm TAPSE: 2.1 cm Doppler Measurements & Calculations Ao V2 max: 117.6 cm/sec LVOT Max Syed: 94.3 cm/sec Ao V2 mean: 88.1 cm/sec LV V1 max P.6 mmHg Ao max P.5 mmHg LV V1 VTI: 19.6 cm Ao mean P.3 mmHg FABY(I,D): 2.9 cm2 Ao V2 VTI: 24.2 cm FABY(V,D): 2.9 cm2 sev ratio: 0.81 FABY indexed to BSA (cm^2/m^2): 1.4 MV E max syed: 58.6 cm/sec TR max syed: 229.4 cm/sec MV A max syed: 49.2 cm/sec TR max P.0 mmHg MV E/A: 1.2 PA V2 max: 97.9 cm/sec Med Peak E' Syed: 5.3 cm/sec PA V2 mean: 60.8 cm/sec E/E' med: 11.1 PA mean P.7 mmHg Lat Peak E' Syed: 7.8 cm/sec PA pr(Accel): 56.7 mmHg E/E' lat: 7.5 E/e' average: 9.3 MV dec time: 0.36 sec SVLVOT): 69.7 ml Reading Physician:05:18 PM
== END ==
PROVIDERS: PCP Family Medicine; Referring Provider Family Medicine; Visit Provider Family Medicine
DX: I08.1 Rheumatic disorders of both mitral and tricuspid valves (principal); I77.810 Thoracic aortic ectasia; R00.0 Tachycardia, unspecified
CPT/HCPCS: 93306

== ENCOUNTER → 2024-09-30 08:56 | Outpatient (CLI) | payer MEDICARE, OTHER, SELFPAY ==
[2023-09-05 14:54] VITALS: BMI 30.9
[2024-09-30 19:23] LABS: Add Manual Diff / Slide Review NO; Hematocrit 40.4 % (41-53); Hemoglobin 13.9 g/dL (13.5-17.5); Lymphocytes Absolute Auto 1100 /uL (1100-4500); Mean Corpuscular HGB Conc 34.3 % (30-36); Mean Corpuscular Hemoglobin 32.0 PG (26-34); Mean Corpuscular Volume 93.3 fL (80-100); Platelet Count 166 X10^3/uL (150-400)
[2024-09-30 19:29] LABS: Cholesterol 171 mg/dL (140-199); HDL Cholesterol 67 mg/dL (40-60); Triglycerides 183 mg/dL (35-150)
[2024-09-30 20:08] LABS: Hemoglobin A1C% w Est Avg Glu 5.5 % (4.0-6.0)
== END ==
PROVIDERS: PCP Family Medicine; Visit Provider Family Medicine
DX: I25.10 Atherosclerotic heart disease of native coronary artery without angina pectoris (principal); D64.9 Anemia, unspecified; R73.9 Hyperglycemia, unspecified; E78.2 Mixed hyperlipidemia; I10 Essential (primary) hypertension
CPT/HCPCS: 80061; 83036; 85025